=== PATIENT | female | born 1935 | race Caucasian/White ===

== ENCOUNTER → 2017-01-17 | Outpatient (CLI) | payer OTHER, MEDICARE ==
[~2017-01-17] MED LIST: AMLO10TA4 PO; CALC625T35 PO; CHOL100010 PO; CLC100X PO; LOSA50TA6 PO; MULT-506 PO; OMEG1CAP71 PO; OMEP20CA59 PO; POLY335019 PO
== END | disposition home or self-care (01) ==
LOC: C.LABPBG 14:29
PROVIDERS: ATTEND Internal Medicine Cardiovascular Disease
DX: I10 Essential (primary) hypertension (principal); E03.9 Hypothyroidism, unspecified

== ENCOUNTER → 2017-05-19 | Outpatient (CLI) | payer OTHER, MEDICARE ==
--- NOTE | 2017-05-19 16:10 | MAMMOGRAPHY REPORT ---
BILATERAL DIGITAL SCREENING MAMMOGRAM TOMOSYNTHESIS WITH CAD: 05/19/2017 CLINICAL HISTORY: Asymptomatic. Personal history of breast cancer. TECHNIQUE: Breast tomosynthesis in addition to standard 2D mammography was performed. Current study was also evaluated with a Computer Aided Detection (CAD) system. No there is mild grid artifact on t he 2-D left MLO view, however, the left MLO tomosynthesis images and C view are not degraded by artif act. COMPARISON: Comparison is made to exams dated: 05/03/2016 mammogram - [facility], 04/28/2015 mammogram, 04/17/2014 mammogram, 04/13/2013 mammogram, 03/13/2012 mammogram, and 03/08/2011 mammog [facility]. BREAST COMPOSITION: There are scattered areas of fibroglandular density in both breasts. FINDINGS: No suspicious masses, calcifications, or areas of architectural distortion are noted in ei ther breast. There has been no significant interval change compared to prior exams. Scattered bilater al benign-appearing calcifications are not significantly changed. There are stable postoperative meredith nges in the right superior breast from prior lumpectomy. Small circumscribed benign-appearing left b reast masses are stable compared to multiple prior exams. IMPRESSION: ACR BI-RADS CATEGORY 2: BENIGN There is no mammographic evidence of malignancy. A 1 year screening mammogram is recommended. The pa tient will receive written notification of the results. Approximately 10% of breast cancers are not detected with mammography. A negative mammographic report should not delay biopsy if a clinically suggestive mass is present. Chanel Marc M.D. ah/:05/19/2017 15:12:51 [employer] [facility]: Dary Perez RT(R)(M)(BD), [facility] letter sent: Normal 1/2 BI-RADS Code: ACR BI-RADS Category 2: Benign
== END | disposition home or self-care (01) ==
LOC: C.MAMM 12:12
PROVIDERS: ATTEND Nurse Practitioner Obstetrics & Gynecology
DX: Z12.31 Encounter for screening mammogram for malignant neoplasm of breast (principal)

== ENCOUNTER 2018-01-01 13:00 | Inpatient (IN) | payer OTHER, MEDICARE ==
[~2018-01-01] VITALS: Ht 167.6 cm; Wt 104.0 kg
[2018-01-01] MEDS ORDERED: PROMETHAZINE HCL INJ 25 MG in SODIUM CHLORIDE 0.9% 50ML 50 ML IV STA (13:58)
[2018-01-01] MEDS ORDERED: CHOL400T PO (14:19)
--- NOTE | 2018-01-01 14:35 | DIAGNOSTIC IMAGING REPORT ---
AP pelvis and right hip 4 views CLINICAL HISTORY: Right hip pain status post trauma COMPARISON STUDY: No previous studies for comparison. FINDINGS: There is an acute intertrochanteric right hip fracture with avulsion and distraction of the lesser trochanter. No fractures of the left hip are visualized. There is symphysis sclerosis. There is no symphysis diastases. There is no SI joint diastases. IMPRESSION: Acute intertrochanteric right hip fracture. The lesser trochanteric fragment is distracted x 1.5 cm. Electronically signed by: Pepito Spencer M.D. 01/01/2018 2:34 PM Dictated Date/Time: 01/01/2018 2:33 PM
--- NOTE | 2018-01-01 14:36 | DIAGNOSTIC IMAGING REPORT ---
R ANKLE 2 VIEWS CLINICAL HISTORY: Right ankle pain status post trauma COMPARISON: None. DISCUSSION: No acute fractures or dislocations are visualized. There is a small Achilles insertional calcification. There are arthritic changes present at the level of the tarsometatarsal joints. IMPRESSION: No acute fractures or dislocations identified. Electronically signed by: Pepito Spencer M.D. 01/01/2018 2:35 PM Dictated Date/Time: 01/01/2018 2:34 PM
--- NOTE | 2018-01-01 14:38 | EMERGENCY ROOM VISIT NOTE ---
ED Visit Note First contact with patient: 13:35 The patient was seen and examined with Zoltan Preciado PA-C. I agree with the history, physical and findings. Please see the note for disposition and details. The patient has a intertrochanteric fracture from her fall. She will need admission to the hospital. Orthopedics and internal medicine was consulted.
--- NOTE | 2018-01-01 14:39 | DIAGNOSTIC IMAGING REPORT ---
CT HEAD WITHOUT CONTRAST (CT) CLINICAL HISTORY: Head pain status post trauma COMPARISON STUDY: No previous studies for comparison. TECHNIQUE: Axial CT of the brain is performed from the vertex to the skull base. IV contrast was not administered for this examination. A dose lowering technique was utilized adhering to the principles of ALARA. CT DOSE: 537.48 mGy.cm FINDINGS: No intra or extra-axial mass lesions are visualized. There is no CT evidence of acute cortical infarction. There is no evidence of midline shift. There is no acute hemorrhage. No calvarial fractures are visualized. There are patchy white matter hypodensities likely on a small vessel basis. There is mild particular prominence of finding which is felt to be secondary to volume loss There is no evidence of acute sinusitis IMPRESSION: No acute intracranial findings Electronically signed by: Pepito Spencer M.D. 01/01/2018 2:38 PM Dictated Date/Time: 01/01/2018 2:36 PM
[2018-01-01] MEDS ORDERED: THIA100T11 PO (15:10)
[2018-01-01] MEDS ORDERED: ASPI81TA28 PO (15:16)
[2018-01-01 15:19] LABS: BASO % 0.1 %; BASO ABS # 0.02 K/uL (0-0.2); EOS % 0.1 %; EOS ABS # 0.02 K/uL (0-0.5); HEMATOCRIT 38.3 % (37-47); IG# 0.07 K/uL (0.00-0.02); LYMPH % 7.7 %; LYMPH ABS # 1.27 K/uL (1.2-3.4); MEAN CELL VOLUME 92.1 fL (80-100); MEAN CORPUSCULAR HEMOGLOBIN 31.3 pg (25-34); MEAN CORPUSCULAR HGB CONC 33.9 g/dl (32-36); MONO % 5.4 %; MONO ABS # 0.89 K/uL (0.11-0.59); NEUT % 86.3 %; NEUT ABS # 14.19 K/uL (1.4-6.5); PLATELET COUNT 248 K/uL (130-400); RED CELL DISTRIBUTION WIDTH CV 12.5 % (11.5-14.5); RED CELL DISTRIBUTION WIDTH SD 42.4 fL (36.4-46.3); WHITE BLOOD COUNT 16.46 K/uL (4.8-10.8)
[2018-01-01] MEDS ORDERED: ALUMINUM/MAGNESIUM/SIMETH (MAALOX MAX) 30 ML UDC PO PRN (15:30)
[2018-01-01 15:35] LABS: CALCIUM 8.9 mg/dl (8.5-10.1); CREATININE 0.85 mg/dl (0.60-1.20); POTASSIUM 3.7 mmol/L (3.5-5.1)
[2018-01-01] MEDS ORDERED: PANTOprazole SOD 40 MG TAB PO PRN (15:45)
[2018-01-01] MEDS ORDERED: ASPIRIN 81 MG ECTAB PO SCH (15:45)
[2018-01-01 16:00] LABS: PTT PATIENT 21.7 SECONDS (21.0-31.0)
--- NOTE | 2018-01-01 16:10 | EMERGENCY ROOM VISIT NOTE ---
History First contact with patient: 13:35 Chief Complaint: FALL Stated Complaint: FALL/HIP PAIN History of Present Illness The patient is a 82 year old white female who presents to the Emergency Room with complaints of right hip and pelvis pain after falling at home today. Patient was sitting on her rolling walker. She attempted to push herself away from the counter. The rolling walker tipped over and she fell onto the floor. She landed on her buttock. She fell backward and struck her head on the floor. She denies any loss of consciousness. Her daughter believes that the patient' s eyes did roll back in her head after striking the floor. She has been nauseated. She arrives by [facility] ambulance. She did receive fentanyl and Zofran in the ambulance. She denies any chest pain, shortness of breath, abdominal pain, back pain, upper extremity pain, or right leg pain. Her only complaints are of nausea and right pelvis and hip pain. No prior history of significant hip injury. She does have known osteoarthritis of her knees. She does see Dr. Vee for her orthopedic complaints. Review of Systems REVIEW OF SYSTEM: HEENT: No dizziness, visual problems, hearing loss, or tinnitus. There is no difficulty swallowing and no oral lesions are present. LYMPH: No adenopathy. PULMONARY: No cough, sputum production or hemoptysis. CARDIOVASCULAR: No chest pain, palpitations, or peripheral edema. GASTROINTESTINAL: No diarrhea, constipation, nausea, vomiting, or abdominal pain. GENITOURINARY: No dysuria, frequency, urgency or nocturia. NEUROLOGIC: No weakness, muscle tenderness, or epilepsy. Positive history of peripheral neuropathy. MUSCULOSKELETAL: No history of joint tenderness/swelling. Positive history of arthritis and arthralgias. SKIN: No rashes or lesions. PSYCHIATRIC: No history of depression or mental illness. ENDOCRINE: No history of diabetes, thyroid disorders, or abnormal hair growth. Past Medical/Surgical History Medical Problems: (1) Cholecystectomy (2) Diverticulitis (3) Hip fracture (4) Hysterectomy (5) MALIGN NEOPL BREAST NOS Family History Noncontributory. Parents are . Social History Smoking Status: Former Smoker Smokeless Tobacco Use: No Alcohol Use: none Drug Use: none Marital Status: Housing Status: lives with family Occupation Status: retired Current/Historical Medications Scheduled Amlodipine Besylate (Norvasc), 10 MG PO DAILYBD Aspirin (Aspirin Ec), 81 MG PO DAILY@NOON Calcium Polycarbophil (Fiber), 2 TAB PO DAILYBD Docusate Sodium (Colace), 2 CAP PO QAM Losartan Potassium (Cozaar), 50 MG PO QAM Multivitamin (Multivitamin), 1 TAB PO QAM Marmora 3 Fatty Acids-Marmora 6 Fa (Marmora 3-6-9 Complex), 1 CAP PO QPM Polyethylene Glycol 3350 (Miralax), 17 GM PO NOON Thiamine Hcl (Vitamin B-1), 400 MG PO DAILY Scheduled PRN Omeprazole (Prilosec), 20 MG PO QAM PRN for GI Upset Physical Exam Vital Signs Date Time Temp Pulse Resp B/P (MAP) Pulse Ox O2 Delivery O2 Flow Rate FiO2 01/01/18 15:32 137/47 01/01/18 15:30 73 24 98 01/01/18 14:00 64 21 97 01/01/18 13:34 145/77 01/01/18 13:30 67 14 99 01/01/18 13:15 67 01/01/18 13:13 36.7 68 18 180/69 98 Room Air 01/01/18 13:08 180/69 Physical Exam General: Well-developed, well-nourished, morbidly obese elderly white female in no acute distress. Obvious discomfort. Laying on a bed. Alert and oriented. Looks younger than her stated age. Skin: Warm and dry with good turgor. No rashes or lesions. No ecchymosis or erythema. The patient is not diaphoretic. No abrasions. HEENT: Normocephalic atraumatic. Eyes PERRLA, EOMI. No conjunctiva or scleral injection. Ears TMs intact bilaterally with good light reflexes. No erythema or bulging. No hemotympanum. Canals are patent. Nares patent bilaterally without turbinate enlargement. No significant drainage. No epistaxis. Oropharynx without erythema or exudate. Uvula midline, oral mucosa moist. No lesions present. Lymphatics are palpated without anterior or posterior chain enlargement or tenderness. Heart: Heart RRR. No MGR. No carotid bruit. Peripheral pulses are 2+. Lungs: Lungs are clear to auscultation. No crackles rhonchi or wheezing. Good air movement. The patient is able to take a deep breath. Abdomen: Abdomen was inspected, auscultated, and palpated. Bowel sounds present x 4. Soft, nontender to palpation. No hepato-splenomegaly. No masses noted. No rebound, negative Maldonado sign. No pain over McBurney's point. No CVA tenderness. Musculoskeletal: Patient has symmetric motion for her shoulders, elbows, and wrists, without pain. No discomfort with palpation over her cervical spine. She has a slight shortening of the right lower extremity. There is an external rotation position to the leg. She complains of pain with palpation over the lateral aspect of her right ankle. No pain with palpation over her foot, watson, knee, distal thigh. There is pain with palpation over her right hip and right pelvis. No pain with palpation over the left hip or left pelvis. No pain with palpation on the left leg. She has intact motor function to the left hip, knee , and ankle. No pain with logrolling of the left leg. There is pain with logrolling of the right leg. Neurologic: Cranial nerves II through XII are intact. Gross sensation is intact across the lower extremities by soft touch. Peripheral pulses are 1+. Medical Decision & Procedures ER Provider Diagnostic Interpretation: CT scan imaging of her head was obtained today. This was read by radiology as negative for intracranial bleed or acute findings. Chronic changes are noted. EKG obtained today shows Normal sinus rhythm with a rate of 72. Right bundle branch block, Left anterior fascicular block, unchanged from EKG of April 2013. This was reviewed with Dr. Wolfe. Radiographic imaging obtained of the right ankle, right hip, and pelvis was obtained. This was reviewed by me and read by radiology. Right ankle is unremarkable. No evidence for fracture dislocation. Right hip has an intertrochanteric fracture with displacement of the lesser trochanter. Pelvic films show no evidence of pelvic fracture. Intertrochanteric fracture is visible. Laboratory Results 01/01/18 15:10 Red Blood Count 4.16, Mean Corpuscular Volume 92.1, Mean Corpuscular Hemoglobin 31.3, Mean Corpuscular Hemoglobin Concent 33.9, Mean Platelet Volume 10.0, Neutrophils (%) (Auto) 86.3, Lymphocytes (%) (Auto) 7.7, Monocytes (%) (Auto) 5.4, Eosinophils (%) (Auto) 0.1, Basophils (%) (Auto) 0.1, Neutrophils # (Auto) 14.19, Lymphocytes # (Auto) 1.27, Monocytes # (Auto) 0.89, Eosinophils # (Auto) 0.02, Basophils # (Auto) 0.02 01/01/18 15:10 Test 01/01/18 15:10 White Blood Count 16.46 K/uL (4.8-10.8) Red Blood Count 4.16 M/uL (4.2-5.4) Hemoglobin 13.0 g/dL (12.0-16.0) Hematocrit 38.3 % (37-47) Mean Corpuscular Volume 92.1 fL (80-100) Mean Corpuscular Hemoglobin 31.3 pg (25-34) Mean Corpuscular Hemoglobin Concent 33.9 g/dl (32-36) Platelet Count 248 K/uL (130-400) Mean Platelet Volume 10.0 fL (7.4-10.4) Neutrophils (%) (Auto) 86.3 % Lymphocytes (%) (Auto) 7.7 % Monocytes (%) (Auto) 5.4 % Eosinophils (%) (Auto) 0.1 % Basophils (%) (Auto) 0.1 % Neutrophils # (Auto) 14.19 K/uL (1.4-6.5) Lymphocytes # (Auto) 1.27 K/uL (1.2-3.4) Monocytes # (Auto) 0.89 K/uL (0.11-0.59) Eosinophils # (Auto) 0.02 K/uL (0-0.5) Basophils # (Auto) 0.02 K/uL (0-0.2) RDW Standard Deviation 42.4 fL (36.4-46.3) RDW Coefficient of Variation 12.5 % (11.5-14.5) Immature Granulocyte % (Auto) 0.4 % Immature Granulocyte # (Auto) 0.07 K/uL (0.00-0.02) Prothrombin Time 10.3 SECONDS (9.0-12.0) Prothromb Time International Ratio 1.0 (0.9-1.1) Activated Partial Thromboplast Time 21.7 SECONDS (21.0-31.0) Partial Thromboplastin Ratio 0.8 Anion Gap 9.0 mmol/L (3-11) Est Creatinine Clear Calc Drug Dose 63.4 ml/min Estimated GFR () 73.4 Estimated GFR (Non- 63.4 BUN/Creatinine Ratio 27.2 (10-20) Calcium Level 8.9 mg/dl (8.5-10.1) CBC and PRP were obtained today. Medications Administered Medications (Trade) Dose Ordered Sig/Home Route Start Time Stop Time Status Last Admin Dose Admin Promethazine HCl 25 mg/Sodium Chloride 51 ml @ 204 mls/hr NOW STAT IV 01/01/18 13:58 01/01/18 14:12 DC 01/01/18 14:47 204 MLS/HR Phenergan 25 mg IV ED Course Patient was evaluated in room C1. She was removed from the backboard. IV was reestablished in the ambulance. She did receive Zofran 4 mg IV and fentanyl 50 mcg IV in route. She continued to be nauseated. She was given Phenergan 25 mg IV. Lab work, CT scan imaging of the head, and radiographic imaging of the right ankle, right hip, and pelvis was obtained. She was found to have an intertrochanteric fracture of the right hip. EKG was also obtained and was unremarkable. She last ate around 830 this morning. She will require admission for surgical fixation. I did contact the hospitalist service for admission. Please see that dictation. I did contact Dr. Armendariz to make him aware of her orthopedic needs. He will contact Dr. Vee. She remained stable while in the ED. Patient was seen in conjunction with Dr. Wolfe, who also evaluated the patient and concurred with today's diagnosis and treatment plan. Medical Decision Possibility of intracranial bleed, cervical spine injury, long bone fracture, cardiac event, LOC, pelvic fracture, and ankle fracture were considered among others. Medication Reconcilliation Current Medication List: was personally reviewed by me Blood Pressure Screening Blood pressure disposition: Elevated BP felt to be situational Impression Primary Impression: Intertrochanteric fracture of right hip Additional Impression: Fall at home Departure Information Referrals Van Lynn M.D. (PCP) Patient Instructions My [facility] Problem Qualifiers Primary Impression: Intertrochanteric fracture of right hip Encounter type: initial encounter Fracture type: closed Fracture alignment : displaced Qualified Codes: S72.141A - Displaced intertrochanteric fracture of right femur, initial encounter for closed fracture Additional Impression: Fall at home Encounter type: initial encounter Qualified Codes: W19.XXXA - Unspecified fall, initial encounter; Y92.009 - Unspecified place in unspecified non- institutional (private) residence as the place of occurrence of the external cause
[2018-01-01] MEDS ORDERED: HYDROmorphone INJ 0.5 MG/0.5 ML SYR IV PRN (16:15)
--- NOTE | 2018-01-01 16:17 | History and Physical ---
History & Physical Date & Time of Service: Jan 01, 2018 at 15:55 Chief Complaint: Fall/Hip Pain Primary Care Physician: Van Lynn M.D. History of Present Illness Source: patient 82-year-old female with history of hypertension. Presented to the emergency department after a ground-level fall. She was in her rolling walker and went to stand up. When she did the walker kicked backwards and she fell straight to the ground landing on her right buttock. She immediately felt pain in the right hip area and was brought to the emergency department. She denies any recent fever, chills, nausea, vomiting or change in bowel or bladder function. She has had no recent cough. Patient was evaluated in emergency department and had imaging of her ankle and hip. Ankle x-ray showed no acute fractures or dislocations hip x-ray showed an acute intertrochanteric right hip fracture. The lesser trochanteric fragment is distracted by 1.5 cm. She was given fentanyl en route to the emergency department and had Toradol and Zofran while in the ED. Call was placed to the orthopedic surgeon and hospital medicine was asked to admit the patient. Past Medical/Surgical History Medical Problems: 1. Hypertension 2. Hx Breast CA 3. GERD Past surgical history 1. Cholecystectomy 2. Tonsillectomy 3. Hysterectomy Family History Patient reports no known family medical history. Social History Smoking Status: Former Smoker Smokeless Tobacco Use: No Alcohol Use: none Drug Use: none Marital Status: Housing status: lives alone Occupational Status: retired Immunizations History of Influenza Vaccine: N/A History of Tetanus Vaccine?: UTD History of Pneumococcal: Yes Pneumococcal Date: May 24, 2008 History of Hepatitis B Vaccine: Yes Allergies Coded Allergies: Hydrochlorothiazide (Verified Allergy, Unknown, ? heart palpatations, ) UNSURE IF REACTION CORRECT Morphine (Verified Allergy, Unknown, "STOPPED BREATHING", 01/01/18) Lidocaine (Verified Adverse Reaction, Intermediate, RASH, 01/01/18) Home Medications Scheduled Amlodipine Besylate (Norvasc), 10 MG PO DAILYBD Aspirin (Aspirin Ec), 81 MG PO DAILY@NOON Calcium Polycarbophil (Fiber), 2 TAB PO DAILYBD Docusate Sodium (Colace), 2 CAP PO QAM Losartan Potassium (Cozaar), 50 MG PO QAM Multivitamin (Multivitamin), 1 TAB PO QAM Laurel 3 Fatty Acids-Laurel 6 Fa (Laurel 3-6-9 Complex), 1 CAP PO QPM Polyethylene Glycol 3350 (Miralax), 17 GM PO NOON Thiamine Hcl (Vitamin B-1), 400 MG PO DAILY Scheduled PRN Omeprazole (Prilosec), 20 MG PO QAM PRN for GI Upset Review of Systems Constitutional: No fever, No chills, No sweats, No weight loss, No weakness, No fatigue, No problem reported Eyes: No worsening of vision, No eye pain, No redness, No discharge, No diplopia, No problem reported ENT: No hearing loss, No unusual epistaxis, No nasal symptoms, No sore throat, No tinnitus, No dental problems, No trouble swallowing, No problem reported Respiratory: No cough, No sputum, No wheezing, No shortness of breath, No dyspnea on exertion, No dyspnea at rest, No hemoptysis, No problem reported Cardiovascular: No chest pain, No orthopnea, No PND, No edema, No claudication , No palpitations, No problem reported Abdomen: No pain, No nausea, No vomiting, No diarrhea, No constipation, No GI bleeding, No problem reported Musculoskeletal: + problem reported (right hip pain) Genitourinary - Female: No dysuria, No urinary frequency, No urinary urgency, No urinary incontinence, No urinary retention, No hematuria, No dysmenorrhea, No menorrhagia, No metrorrhagia, No rash, No vaginal bleeding, No vaginal discharge, No vaginal itching, No vulvodynia, No , No problem reported Neurologic: No memory loss, No paralysis, No weakness, No numbness/tingling, No vertigo, No balance problems, No problem reported Psychiatric: No depression symptoms, No anhedonism, No anxiety, No insomnia, No substance abuse, No problem reported Endocrine: No fatigue, No excessive thirst, No excessive urination, No problem reported Hematologic / Lymphatic: No abnormal bleeding/bruising, No clotting problems, No swollen lymph nodes, No night sweats, No problem reported Integumentary: No rash, No itch, No new/changing skin lesions, No color change , No bleeding, No problem reported Physical Exam Vital Signs Date Time Temp Pulse Resp B/P (MAP) Pulse Ox O2 Delivery O2 Flow Rate FiO2 4/8/18 15:32 137/47 01/01/18 15:30 73 24 98 01/01/18 14:00 64 21 97 01/01/18 13:34 145/77 01/01/18 13:30 67 14 99 01/01/18 13:15 67 01/01/18 13:13 36.7 68 18 180/69 98 Room Air 01/01/18 13:08 180/69 General Appearance: WD/WN, + pertinent finding Eyes: normal inspection, sclerae normal ENT: hearing grossly normal, pharynx normal Neck: supple, no JVD Respiratory/Chest: chest non-tender, lungs clear, normal breath sounds Cardiovascular: regular rate, rhythm, no JVD, no murmur Abdomen/GI: normal bowel sounds, non tender, soft Genitourinary - Female: + pertinent finding (ashley) Back: normal inspection Extremities/Musculoskelatal: + pertinent finding (right leg shortened and externally rotated) Neurologic/Psych: no motor/sensory deficits (cms to right foot good), alert, oriented x 3 Skin: normal color, warm/dry, no rash Diagnostics Laboratory Results Results Past 24 Hours Test 01/01/18 15:10 Range/Units White Blood Count 16.46 4.8-10.8 K/uL Red Blood Count 4.16 4.2-5.4 M/uL Hemoglobin 13.0 12.0-16.0 g/dL Hematocrit 38.3 37-47 % Mean Corpuscular Volume 92.1 80-100 fL Mean Corpuscular Hemoglobin 31.3 25-34 pg Mean Corpuscular Hemoglobin Concent 33.9 32-36 g/dl Platelet Count 248 130-400 K/uL Mean Platelet Volume 10.0 7.4-10.4 fL Neutrophils (%) (Auto) 86.3 % Lymphocytes (%) (Auto) 7.7 % Monocytes (%) (Auto) 5.4 % Eosinophils (%) (Auto) 0.1 % Basophils (%) (Auto) 0.1 % Neutrophils # (Auto) 14.19 1.4-6.5 K/uL Lymphocytes # (Auto) 1.27 1.2-3.4 K/uL Monocytes # (Auto) 0.89 0.11-0.59 K/uL Eosinophils # (Auto) 0.02 0-0.5 K/uL Basophils # (Auto) 0.02 0-0.2 K/uL RDW Standard Deviation 42.4 36.4-46.3 fL RDW Coefficient of Variation 12.5 11.5-14.5 % Immature Granulocyte % (Auto) 0.4 % Immature Granulocyte # (Auto) 0.07 0.00-0.02 K/uL Sodium Level 137 136-145 mmol/L Potassium Level 3.7 3.5-5.1 mmol/L Chloride Level 103 98-107 mmol/L Carbon Dioxide Level 25 21-32 mmol/L Anion Gap 9.0 3-11 mmol/L Blood Urea Nitrogen 23 7-18 mg/dl Creatinine 0.85 0.60-1.20 mg/dl Est Creatinine Clear Calc Drug Dose 63.4 ml/min Estimated GFR () 73.4 Estimated GFR (Non- 63.4 BUN/Creatinine Ratio 27.2 10-20 Random Glucose 148 70-99 mg/dl Calcium Level 8.9 8.5-10.1 mg/dl Diagnostic Radiology CT HEAD WITHOUT CONTRAST (CT) CLINICAL HISTORY: Head pain status post trauma COMPARISON STUDY: No previous studies for comparison. TECHNIQUE: Axial CT of the brain is performed from the vertex to the skull base. IV contrast was not administered for this examination. A dose lowering technique was utilized adhering to the principles of ALARA. CT DOSE: 537.48 mGy.cm FINDINGS: No intra or extra-axial mass lesions are visualized. There is no CT evidence of acute cortical infarction. There is no evidence of midline shift. There is no acute hemorrhage. No calvarial fractures are visualized. There are patchy white matter hypodensities likely on a small vessel basis. There is mild particular prominence of finding which is felt to be secondary to volume loss There is no evidence of acute sinusitis IMPRESSION: No acute intracranial findings AP pelvis and right hip 4 views CLINICAL HISTORY: Right hip pain status post trauma COMPARISON STUDY: No previous studies for comparison. FINDINGS: There is an acute intertrochanteric right hip fracture with avulsion and distraction of the lesser trochanter. No fractures of the left hip are visualized. There is symphysis sclerosis. There is no symphysis diastases. There is no SI joint diastases. IMPRESSION: Acute intertrochanteric right hip fracture. The lesser trochanteric fragment is distracted x 1.5 cm. Normal EKG Impression Assessment and Plan 82 year old female with history of hypertension. Fell while getting out of her walker and instantly developed right hip pain. 1. Acute right peritrochanteric hip fracture. Will consult orthopedics. Bedrest. Focus on pain control. Patient did ask for Dr. Vee as surgeon however he is not habilitation specialist. On-call surgeon is to discuss and see if Dr. Vee is available tomorrow. 2. Ambulatory dysfunction secondary to hip fracture. Postoperatively she will need physical therapy and occupational therapy. 3. Hypertension-will continue her on her home 4. Pain secondary to acute right hip fracture. Will start her with Toradol. She currently states she cannot take morphine. She did have fentanyl en route and tolerated it well. We will try Dilaudid for breakthrough pain. 5. DVT prophylaxis will be per orthopedic guidelines postoperatively. 6. Full code 7. stay will be 2 midnights Resuscitation Status VTE Prophylaxis Will order VTE Prophylaxis: Yes Reviewed: Pt Seen/Exam by Me History Pt is very cold and thirsty. She feels her pain is getting worse. She again mentions that she wants to speak with Dr. Vee about who will do her surgery. Has been tolerating PO without issue. Denies chest pain, SOB. Does have mild nausea now but no emesis. Agree with HPI/ROS as noted by PA. General Appearance: no apparent distress, obese Eye Exam: bilateral eye normal inspection, bilateral eye other (nml sclera) Respiratory: normal breath sounds, no respiratory distress Cardiovascular: normal peripheral pulses, regular rate, rhythm Gastrointestinal: non tender, soft Extremities: no pedal edema Neurologic/Psychiatric: alert, oriented x 3 Skin Characteristics: normal color, warm/dry Assessment/Plan Agree with plan as outlined above R intertroch fracture s/p mechanical fall Ortho c/s pending Wants to see Dr. Vee only as she follows with him as outpt
[2018-01-01] MEDS: KETOROLAC TROMETHAMINE 15 MG/ML VIAL IV. PRN (16:19)
[2018-01-01 16:50] VITALS: Ht 167.6 cm; Wt 104.0 kg
[2018-01-01] MEDS: ONDANSETRON INJ 2 MG/ML 2 ML VIAL IV PRN (18:04)
[2018-01-01] MEDS: AMLODIPINE BESYLATE 5 MG TAB PO SCH ×2 (18:04→18:06)
[2018-01-01] MEDS: SODIUM CHLORIDE 0.9% 1000ML 1,000 ML IV SCH (19:40)
[2018-01-01 23:08] VITALS: BP 132/68; PULSE 69; TEMP 37.4; O2SAT 94
[2018-01-02] VITALS (8 sets, daily range): BP systolic 106–154; BP diastolic 57–70; PULSE 63–80; TEMP 36.7–37.1; O2SAT 91–99
[2018-01-02] MEDS: SODIUM CHLORIDE 0.9% 1000ML 1,000 ML IV SCH ×2 (02:10→08:49)
[2018-01-02] MEDS: KETOROLAC TROMETHAMINE 15 MG/ML VIAL IV. PRN ×2 (04:07→12:29)
[2018-01-02] MEDS: ONDANSETRON INJ 2 MG/ML 2 ML VIAL IV PRN ×2 (04:07→20:22)
[2018-01-02] MEDS ORDERED: CLINDAMYCIN IV 900 MG in DEXTROSE 5% 100ML 100 ML IV SCH (06:00)
[2018-01-02 06:12] LABS: HEMATOCRIT 32.9 % (37-47); HEMOGLOBIN 11.1 g/dL (12.0-16.0); MEAN CELL VOLUME 92.9 fL (80-100); MEAN CORPUSCULAR HEMOGLOBIN 31.4 pg (25-34); MEAN CORPUSCULAR HGB CONC 33.7 g/dl (32-36); MEAN PLATELET VOLUME 9.9 fL (7.4-10.4); PLATELET COUNT 220 K/uL (130-400); RED CELL DISTRIBUTION WIDTH CV 12.7 % (11.5-14.5); RED CELL DISTRIBUTION WIDTH SD 43.4 fL (36.4-46.3)
[2018-01-02] MEDS ORDERED: BUPIVACAINE 0.5 % 5 MG/1 ML PF 10ML VIAL ONE (06:32)
[2018-01-02 06:52] LABS: CALCIUM 8.5 mg/dl (8.5-10.1); CREATININE 0.89 mg/dl (0.60-1.20); POTASSIUM 4.2 mmol/L (3.5-5.1)
--- NOTE | 2018-01-02 08:01 | ORTHOPEDIC CONSULTATION ---
DATE OF CONSULTATION: 01/02/2018 CHIEF COMPLAINT: Right hip pain. HISTORY OF PRESENT ILLNESS: The patient is an 82-year-old female well known to me from treating her for a pretty severe knee arthritis. She walks with the use of a rollator device due to her knee arthritis. She has got a long history of knee arthritis. No history of hip pain in the past. She sustained a fall yesterday. While getting off of her rollator, it kind of slid forward and she fell backwards and right on to her back and right buttock. She had acute onset of pain. She was brought to the Emergency Room. X-ray showed a right hip fracture. She was admitted by the medicine service. No other injuries. She did have a head CT which was negative. Patient is relatively healthy otherwise with some hypertension and history of cancer. PAST MEDICAL HISTORY: Significant for: 1. Hypertension. 2. History of breast cancer. 3. Gastroesophageal reflux disease. 4. Cervical cancer. PREVIOUS SURGERIES: Include: 1. Cholecystectomy. 2. Tonsillectomy. 3. Hysterectomy. The remainder of her past medical history is per the admission H and P. PHYSICAL EXAMINATION: VITAL SIGNS: Temperature is 37.4. Vital signs stable. GENERAL: Reveals a healthy pleasant elderly female. She is lying in bed, looks reasonably comfortable. MUSCULOSKELETAL: Her general musculoskeletal exam reveals no pain with palpation of her cervical, thoracic or lumbar spine. She has relatively painless range of motion of both shoulders, wrists, elbows, and hands and left lower extremity. EXTREMITIES: Examination of the right lower extremity reveals it to be slightly shortened and externally rotated. Fairly large soft tissue envelope. There are no areas of bruising or swelling and pretty minimal knee effusion. She has pain with any type of hip motion. X-RAYS: X-ray of the right hip reviewed. Shows a 3-part intertrochanteric hip fracture. Some mild underlying hip arthritis. ASSESSMENT: An 82-year-old female, relatively healthy with pretty severe knee arthritis with a right intertrochanteric hip fracture. She has been admitted to medicine service. She looks medically optimized. PLAN: We discussed treatment options. Certainly this is something that is best treated with surgical treatment and we will plan on placing an IM troch nail. Hopefully, I will do this later on this afternoon. Risks and benefits of the procedure were explained to the patient including, but not limited to, DVT, PE, , infection, neurological injury, vascular injury, bleeding problem, pain, nonunion, malunion, need for blood transfusion, etc. The patient understands and desires to proceed. Informed consent was obtained. In the meantime, we will keep her in Herrera's traction. DVT prophylaxis including thigh-high TEDs and SCDs and likely aspirin postop. She will likely need a rehab stay postop.
[2018-01-02] MEDS: LOSARTAN POTASSIUM 50 MG TAB PO SCH (08:48)
[2018-01-02] MEDS: THIAMINE HCL 100 MG TAB PO SCH (08:49)
[2018-01-02] MEDS: MULTIVITAMIN TAB PO SCH (08:49)
[2018-01-02] MEDS: DOCUSATE SODIUM 100 MG CAP PO SCH (08:49)
[2018-01-02] MEDS ORDERED: BISACODYL 10 MG SUPP PR PRN ×3 (09:00→15:15)
[2018-01-02] MEDS ORDERED: MAGNESIUM HYDROXIDE SUSP 30 ML UDC PO PRN ×3 (09:00→15:15)
[2018-01-02] MEDS ORDERED: NALOXONE HCL 0.4 MG/1 ML VIAL/CARP IV PRN ×2 (09:00)
[2018-01-02] MEDS ORDERED: SOD PHOSPHATE/SOD BIPHOSPHATE ENEMA 132 ML BTL PR PRN ×2 (09:00)
[2018-01-02] MEDS ORDERED: POLYETHYLENE (MIRALAX) 17 GM PACK PO PRN ×2 (09:00)
--- NOTE | 2018-01-02 09:41 | Hospitalist Progress Note ---
Hospitalist Progress Note Date of Service Jan 02, 2018. (Kari Ascencio PA-C) Subjective Pt evaluation today including: conversation w/ patient, physical exam, chart review, lab review, review of studies, review of inpatient medication list Pain: R hip - minimal and under control with meds PO Intake: NPO Voiding: ashley catheter in place Patient seen and evaluated. No acute events overnight. Reporting good pain control at this time. Currently in [place] Traction. Planning for OR this afternoon Reporting chronic peripheral neuropathy into feet that is unchanged Verbalizes no complaints or needs at this time. Constitutional: No fever, No chills Respiratory: No cough, No shortness of breath Cardiovascular: No chest pain Abdomen: No pain, No nausea, No vomiting, No diarrhea, No constipation Musculoskeletal: + joint pain (R hip - minimal), No calf pain Female : No dysuria Neurologic: + numbness/tingling (chronic - b/l feet ) Heme: No abnormal bleeding/bruising (Kari Ascencio, DOREEN-C) Medications Current Inpatient Medications Medications (Trade) Dose Ordered Sig/Home Route Start Time Stop Time Status Last Admin Dose Admin Ketorolac Tromethamine (Toradol Inj) 15 mg Q6H PRN IV. 01/01/18 15:30 01/06/18 15:29 01/02/18 04:07 15 MG Acetaminophen (Tylenol Tab) 650 mg Q4H PRN PO 01/01/18 15:30 01/31/18 15:29 Al Hydrox/Mg Hydrox/Simethicone (Maalox Max Susp) 15 ml Q4H PRN PO 01/01/18 15:30 01/31/18 15:29 Ondansetron HCl (Zofran Inj) 4 mg Q6H PRN IV 01/01/18 15:30 01/31/18 15:29 01/02/18 04:07 4 MG Amlodipine Besylate (Norvasc Tab) 10 mg DAILYBD PO 01/01/18 16:00 01/31/18 15:59 01/01/18 18:04 10 MG Aspirin (Ecotrin Tab) 81 mg QD PO 01/01/18 15:45 01/31/18 15:44 Docusate Sodium (coLACE CAP) 200 mg QAM PO 01/02/18 09:00 02/01/18 08:59 Losartan Potassium (coZAAR TAB) 50 mg QAM PO 01/02/18 09:00 02/01/18 08:59 01/02/18 08:48 50 MG Multivitamins (Multivitamin Tab) 1 tab QAM PO 01/02/18 09:00 02/01/18 08:59 01/02/18 08:49 1 TAB Thiamine HCl (Vitamin B-1 Tab) 400 mg DAILY PO 01/02/18 09:00 02/01/18 08:59 Pantoprazole Sodium (Protonix Tab) 40 mg QAM PRN PO 01/01/18 15:45 01/31/18 15:44 Hydromorphone HCl (Dilaudid Inj) 0.5 mg Q4H PRN IV 01/01/18 16:15 01/15/18 16:14 01/01/18 21:57 0.5 MG Sodium Chloride 1,000 ml @ 140 mls/hr Q7H9M IV 01/01/18 19:15 01/31/18 19:14 01/02/18 08:49 140 MLS/HR Naloxone HCl (Narcan Inj) 0.1 mg PRN PRN IV 01/02/18 09:00 02/01/18 08:59 Senna/Docusate Sodium (Senokot S Tab) 2 tab HS PO 01/02/18 21:00 02/01/18 20:59 Polyethylene (Miralax Powder Packet) 17 gm DAILY PRN PO 01/02/18 09:00 02/01/18 08:59 Magnesium Hydroxide (Milk Of Magnesia Susp) 30 ml DAILY PRN PO 01/02/18 09:00 02/01/18 08:59 Bisacodyl (Dulcolax Supp) [address] 01/02/18 09:00 02/01/18 08:59 Sodium Biphosphate/ Sodium Phosphate (Fleet Enema) [address] 01/02/18 09:00 Clindamycin Phosphate 900 mg/ Dextrose 106 ml @ 106 mls/hr PREOP IV 01/02/18 06:00 01/02/18 18:00 (Kari Ascencio PA-C) Objective Vital Signs Date Time Temp Pulse Resp B/P (MAP) Pulse Ox O2 Delivery O2 Flow Rate FiO2 01/02/18 08:01 37.1 74 16 154/70 (98) 94 Room Air 01/02/18 07:50 Room Air 01/02/18 00:15 Room Air 01/01/18 23:08 37.4 69 18 132/68 (89) 94 Room Air 01/01/18 16:50 Room Air 01/01/18 16:44 36.7 79 18 156/57 94 01/01/18 16:37 79 18 94 01/01/18 16:31 156/57 01/01/18 16:07 74 25 96 01/01/18 16:01 150/48 01/01/18 15:37 79 14 97 01/01/18 15:32 137/47 01/01/18 15:30 73 24 98 01/01/18 14:00 64 21 97 01/01/18 13:34 145/77 01/01/18 13:30 67 14 99 01/01/18 13:15 67 01/01/18 13:13 36.7 68 18 180/69 98 Room Air 01/01/18 13:08 180/69 (Kari Ascencio, PA-C) Physical Exam General Appearance: WD/WN, no apparent distress Eyes: sclerae normal ENT: hearing grossly normal Neck: supple, no JVD, trachea midline Respiratory/Chest: lungs clear, normal breath sounds, no respiratory distress, no accessory muscle use Cardiovascular: regular rate, rhythm, no gallop, no murmur Abdomen: normal bowel sounds, non tender, soft Extremities: + pertinent finding (bucks traction to RLE; movement of toes with immediate cap refill) Neurologic/Psychiatric: alert Skin: normal color, warm/dry (Kari Ascencio, PA-C) Laboratory Results Last 24 Hours Test 01/01/18 15:10 01/02/18 05:54 White Blood Count 16.46 K/uL 12.20 K/uL Red Blood Count 4.16 M/uL 3.54 M/uL Hemoglobin 13.0 g/dL 11.1 g/dL Hematocrit 38.3 % 32.9 % Mean Corpuscular Volume 92.1 fL 92.9 fL Mean Corpuscular Hemoglobin 31.3 pg 31.4 pg Mean Corpuscular Hemoglobin Concent 33.9 g/dl 33.7 g/dl Platelet Count 248 K/uL 220 K/uL Mean Platelet Volume 10.0 fL 9.9 fL Neutrophils (%) (Auto) 86.3 % Lymphocytes (%) (Auto) 7.7 % Monocytes (%) (Auto) 5.4 % Eosinophils (%) (Auto) 0.1 % Basophils (%) (Auto) 0.1 % Neutrophils # (Auto) 14.19 K/uL Lymphocytes # (Auto) 1.27 K/uL Monocytes # (Auto) 0.89 K/uL Eosinophils # (Auto) 0.02 K/uL Basophils # (Auto) 0.02 K/uL RDW Standard Deviation 42.4 fL 43.4 fL RDW Coefficient of Variation 12.5 % 12.7 % Immature Granulocyte % (Auto) 0.4 % Immature Granulocyte # (Auto) 0.07 K/uL Prothrombin Time 10.3 SECONDS Prothromb Time International Ratio 1.0 Activated Partial Thromboplast Time 21.7 SECONDS Partial Thromboplastin Ratio 0.8 Urine Color YELLOW Urine Appearance CLEAR Urine pH 6.5 Urine Specific [place] 1.013 Urine Protein NEG Urine Glucose (UA) NEG Urine Ketones NEG Urine Occult Blood NEG Urine Nitrite NEG Urine Bilirubin NEG Urine Urobilinogen NEG Urine Leukocyte Esterase NEG Sodium Level 137 mmol/L 138 mmol/L Potassium Level 3.7 mmol/L 4.2 mmol/L Chloride Level 103 mmol/L 107 mmol/L Carbon Dioxide Level 25 mmol/L 25 mmol/L Anion Gap 9.0 mmol/L 6.0 mmol/L Blood Urea Nitrogen 23 mg/dl 25 mg/dl Creatinine 0.85 mg/dl 0.89 mg/dl Est Creatinine Clear Calc Drug Dose 63.4 ml/min 58.3 ml/min Estimated GFR () 73.4 69.5 Estimated GFR (Non- 63.4 59.9 BUN/Creatinine Ratio 27.2 28.3 Random Glucose 148 mg/dl 111 mg/dl Calcium Level 8.9 mg/dl 8.5 mg/dl (Kari Ascencio PA-C) Assessment and Plan 82 year old female with history of hypertension. Fell while getting out of her walker and instantly developed right hip pain. Acute R Intertrochanteric Hip Fx with Distracted Lesser Trochanter 2/2 Mechanical Fall: - Patient currently in [place] traction reporting good control of pain at this time; plan for nailing this afternoon - Geriatric hip protocol; pre-operative Abx with Clindamycin; bowel regimen - Pain management with Dilaudid and Toradol - NO MORPHINE - Orthopedics following - Dr. Vee planning on nailing this afternoon HTN: STABLE - NOrvasc 10 mg daily and Losartan 50 mg daily - Held ASA daily (did refuse this AM) can resume post-operatively pending choice of DVT prophylaxis Pre-Operative Clearance: - Patient with no history of known Coronary disease or SD; Follows with Dr. 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; no acute ischemic findings; no CXR upon admission but lung sounds clear and no recent illness - Electrolytes and kidney function stable - Patient is very active and ambulates with walker support - Patient is optimal for surgical intervention from a medical standpoint DVT Prophylaxis: Appreciate orthopedics recommendation post-operatively Code Status: FULL RESUSCITATION Disposition: - PT/OT evaluations post-operatively Continued [facility] stay due to: ambulation difficulties Discharge planning: rehab hospital (Kari Ascencio PA-C) Reviewed: Pt Seen/Exam by Me (Leeann Lennon MD) History Physician Mds Nurse Supervision Note: I interviewed and examined the patient. Discussed with DOREEN Ascencio and agree with findings and plan as documented in the note. Any exceptions or clarifications are listed here: I saw the patient a couple of hours postoperatively from her right hip repair. She was feeling tired, but was otherwise doing very well. Denies chest pain or shortness of breath. Denies abdominal pain, she did eat some of her dinner. Her pain is controlled. Vitals reviewed Gen: AAOx3, NAD HEENT: anicteric sclerae, EOMI CV: RRR no mgr nl S1S2 Pulm: CTAB no wcr Abd: +BS soft NT ND no masses or hernias Ext: no edema, 2+ DP pulses bilaterally, right hip with dressing in place not removed but is clean dry and intact Skin: no rashes, warm/dry This patient is an 82-year-old female with history of HTN, GERD, breast cancer, here with mechanical fall resulting in right hip fracture. Doing well postoperatively -PT/OT evaluations -DVT prophylaxis with aspirin 81 mg p.o. twice daily -Pain control -Continue losartan and amlodipine for HTN Documented By: Leeann Lennon (Leeann Lennon MD)
[2018-01-02] MEDS ORDERED: PROPOFOL IV EMULSION 10 MG/ML 20 ML VIAL IV ONE (12:16)
[2018-01-02] MEDS ORDERED: GLYCOPYRROLATE INJ 0.2 MG/ML VIAL ONE (12:16)
[2018-01-02] MEDS ORDERED: ONDANSETRON INJ 2 MG/ML 2 ML VIAL ONE (12:16)
[2018-01-02] MEDS ORDERED: FENTANYL CITRATE INJ 50 MCG/1 ML 2 ML VIAL ONE (12:16)
[2018-01-02] MEDS ORDERED: DEXAMETHASONE SOD INJ 4 MG/ML VIAL ONE (12:16)
[2018-01-02] MEDS ORDERED: NEOSTIGMINE METHYLSULFATE 5 MG/5 ML SYR ONE (12:16)
[2018-01-02] MEDS ORDERED: LIDOCAINE HCL 2% 2 ML VIAL (20MG/ML) ONE (12:16)
[2018-01-02] MEDS ORDERED: EpHEDrine SULFATE INJ 50 MG/ML AMP IV PRN (13:00)
[2018-01-02] MEDS ORDERED: ONDANSETRON INJ 2 MG/ML 2 ML VIAL IV PRN ×2 (13:00→15:15)
[2018-01-02] MEDS ORDERED: ATROPINE SULFATE 0.1 MG/ML 5ML SYR IV PRN (13:00)
[2018-01-02] MEDS ORDERED: BUPIVACAINE/EPINEPHRINE 0.5% MPF 1:200,000 30 ML VIAL ONE (13:04)
--- NOTE | 2018-01-02 14:58 | DIAGNOSTIC IMAGING REPORT ---
FLUOROSCOPIC IMAGES OF THE RIGHT HIP CLINICAL HISTORY: Right trochanteric nail. COMPARISON STUDY: Pelvis and right hip radiographs January 01, 2018. FLUOROSCOPY TIME: 1 minute and 45 seconds. FINDINGS: 4 fluoroscopic images demonstrate internal fixation of the intertrochanteric fracture of the right femur with trochanteric nail. There is a distal screw. The hardware is intact. Lesser trochanter remains distracted. There are no unexpected radiopaque foreign bodies. IMPRESSION: Expected findings following internal fixation of the intertrochanteric fracture of the right femur with trochanteric nail. Electronically signed by: Lonnie Munoz M.D. 01/02/2018 2:57 PM Dictated Date/Time: 01/02/2018 2:56 PM
--- NOTE | 2018-01-02 15:04 | [facility] Post Operative Brief Note ---
Immediate Operative Summary Operative Date Jan 02, 2018. Pre-Operative Diagnosis Right Intertrochanteric Hip Fracture Post-Operative Diagnosis Right Intertrochanteric Hip Fracture Procedure(s) Performed Insertion of Intertrochanteric Nail Right Hip Surgeon Dr. Vee Cartography Technician Surgeon(s) DOREEN Aleman Estimated Blood Loss 50 ml Findings Consistent with Post-Op Diagnosis Fluids (cc crystalloids) 1000 cc Specimens none per surgeon Drains None Anesthesia Type General Complication(s) none Disposition Accompanied Pt To Recover: no Disposition: Recovery Room / PACU
[2018-01-02] MEDS: FENTANYL CITRATE INJ 50 MCG/1 ML 2 ML VIAL IV PRN ×3 (15:18→15:28)
[2018-01-02] MEDS ORDERED: MEPERIDINE HCL 25 MG/ML CARP ONE (15:33)
[2018-01-02] MEDS: HYDROmorphone INJ 0.5 MG/0.5 ML SYR IV PRN ×4 (15:37→15:53)
--- NOTE | 2018-01-02 16:57 | OPERATIVE REPORT ---
DATE OF OPERATION: 01/01/2018 SURGEON: Corwin Vee MD DIRECTOR OF SPA AND GUEST EXPERIENCE: DOREEN Dueñas PREOPERATIVE DIAGNOSIS: Right 3-part intertrochanteric hip fracture. POSTOPERATIVE DIAGNOSIS: Right 3-part intertrochanteric hip fracture. PROCEDURE PERFORMED: Right long cephalomedullary nailing of right intertrochanteric hip fracture. COMPLICATIONS: None. ESTIMATED BLOOD LOSS: 50 mL FLUID REPLACEMENT: 1000 mL crystalloid fluid replacement. ANESTHESIA: General. SPECIMENS: None. 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 She used a rolling walker to get around due to her knee arthritis. She sustained a fall yesterday when the walker kind of went out of control and she fell flat backwards and onto her right hip. She had acute onset of pain. X-rays were done which showed intertrochanteric hip fracture. Patient admitted to the hospital and medically optimized and indicated for surgical treatment. OPERATIVE IMPLANTS: Operative implants consisted of: 1. A Synthes right 360 x 11 mm long trochanteric nail. 2. A 95 mm helical blade. 3. A 5 x 46 mm distal interlocking screw. OPERATIVE PROCEDURE: Patient taken to the operating room, identified and placed on the operative table in supine position. All contact areas were appropriately padded. IV antibiotics were provided by anesthesia team. A general anesthetic was implemented by the anesthesia team using a laryngeal mask anesthetic. IV antibiotics were provided. Patient was then placed on the fracture table. The right leg was placed in boot traction, left leg was placed in a well leg belle. I applied some longitudinal traction to the right leg and internally rotated foot so the kneecap pointed to the ceiling. X-ray was brought in. The fracture was anatomically aligned. The right hip was then prepped and draped in usual sterile fashion. A curvilinear incision was made just proximal tip of the trochanter and extended proximally. Sharp dissection was carried through subcutaneous tissue down to the level of the gluteal fascia. She had a very thick soft tissue envelope with probably about 6 inches of tissue before the gluteal fascia. It was difficult to even feel the gluteal fascia. Therefore, I did not make any intentional incision and placed a sharp guidewire just on the lateral tip of the trochanter and in line with the IM canal in both the AP and lateral planes. This was advanced down the femur. This was verified fluoroscopically and overreamed with a 17 mm reamer. The guidewire was then removed and a ball-tipped guidewire was then placed in the IM canal. I then measured for nail length and a 360 mm nail was selected. Then we overreamed the guidewire with a 12 mm reamer followed by a 12.5 mm reamer. I then placed a 360 mm x 11 mm right long trochanteric nail over the guidewire. This was tapped into position. The lateral aiming arm was attached. A stab incision was made and the lateral aiming arm was advanced to the lateral aspect of the femur. A guidewire was placed in the central aspect of the femoral head and neck on both AP and lateral planes. A 95 mm helical blade was selected. The cortical drill was used to breach the cortex, the triple reamer was set at 95 and the guidewire was overdrilled with this triple reamer. I then placed a 95 mm helical blade over the guidewire. This was tapped into position. The guidewire was then removed. I then tightened the set screw proximally. I then compressed the fracture site as it did distract the fracture slightly on impacting the helical blade. We got good bony contact. The lateral aiming arm was then removed. Some final x-rays were obtained and attention was then drawn toward distal interlock. A distal interlocking was performed using the perfect minto technique. I got a perfect lateral x-ray of the dynamic hole distally. A stab incision was made. The drill was then used and a 46 x 5.0 mm distal interlocking screw was placed. This was verified fluoroscopically. Some final pictures were obtained. Attention was then drawn toward closing. All wounds were irrigated and I injected 30 mL of 0.5% Marcaine with epinephrine. I was able to get 1 suture in the gluteal fascia of #1 Vicryl suture. It was a very deep hole. The subcutaneous tissue was then closed with 2 layers with the deep layer 0 Vicryl suture and subcutaneous tissue 2-0 Dexon suture in buried interrupted fashion. The distal incisions were then closed with 2-0 Vicryl suture in a subcuticular fashion and all incisions were then closed with skin azam. Leg was then cleaned and dried and a sterile dressing of Xeroform, 4 x 4's, ABD pad and foam tape was applied. The patient was then taken off the fracture table and put on the transport bed. She was then brought out of general anesthesia and transferred to the recovery room in stable condition. The patient tolerated the procedure well with no complications. All needle and sponge counts were correct at the end of the operation. I attest to the content of the Intraoperative Record and any orders documented therein. Any exceptions are noted below. FIDELD
[2018-01-02] MEDS: AMLODIPINE BESYLATE 5 MG TAB PO SCH (17:51)
--- NOTE | 2018-01-02 18:25 | Anesthesiology Progress Note ---
Anesthesia Post Op Note Date & Time Jan 02, 2018 at 18:23 Vital Signs Pain Intensity: 3.0 Vital Signs Past 12 Hours Date Time Temp Pulse Resp B/P (MAP) Pulse Ox O2 Delivery O2 Flow Rate FiO2 01/02/18 18:16 Nasal Cannula 2.0 01/02/18 18:08 Nasal Cannula 2.0 01/02/18 17:50 37.0 76 16 135/69 (91) 93 Nasal Cannula 2.0 01/02/18 17:14 36.9 76 16 106/57 (73) 97 Nasal Cannula 2.0 01/02/18 16:50 36.8 80 16 134/65 (88) 99 Nasal Cannula 2.0 01/02/18 16:40 75 20 145/62 97 Nasal Cannula 2 01/02/18 16:25 74 18 140/62 96 Nasal Cannula 2 01/02/18 16:10 72 12 151/48 99 Nasal Cannula 2 01/02/18 16:00 37.0 75 16 158/62 99 Nasal Cannula 2 01/02/18 15:50 72 16 152/60 96 Nasal Cannula 2 01/02/18 15:40 75 14 153/59 97 Nasal Cannula 2 01/02/18 15:30 75 14 151/77 97 Oxymask 10 01/02/18 15:20 72 16 151/77 100 Oxymask 10 01/02/18 15:10 36.7 70 16 152/100 100 Oxymask 10 01/02/18 09:28 94 Room Air 01/02/18 08:01 37.1 74 16 154/70 (98) 94 Room Air 01/02/18 07:50 Room Air Notes Mental Status: alert / awake / arousable, participated in evaluation Pt Amnestic to Procedure: Yes Nausea / Vomiting: adequately controlled Pain: adequately controlled Airway Patency, RR, SpO2: stable & adequate BP & HR: stable & adequate Hydration State: stable & adequate Anesthetic Complications: no major complications apparent The patient is an 82 y/o s/p Insertion of Intertrochanteric Nail Right Hip with Dr. Vee. The patient was placed under GA due to her prior history of allergy to lidocaine. The patient did well with no issues.
[2018-01-02] MEDS ORDERED: DOCUSATE SODIUM/SENNA 50/8.6MG TAB PO SCH ×2 (21:00)
[2018-01-02] MEDS: DOCUSATE SODIUM/SENNA 50/8.6MG TAB PO SCH (21:08)
[2018-01-02] MEDS: ASPIRIN 81 MG ECTAB PO SCH (21:08)
[2018-01-02] MEDS: CLINDAMYCIN IV 600 MG in DEXTROSE 5% 50ML 50 ML IV SCH (22:30)
[2018-01-03] MEDS: SODIUM CHLORIDE 0.9% 1000ML 1,000 ML IV SCH ×2 (02:25→15:23)
[2018-01-03 03:29] VITALS: BP 130/68; PULSE 66; TEMP 36.8; O2SAT 92
[2018-01-03] MEDS: KETOROLAC TROMETHAMINE 15 MG/ML VIAL IV. PRN ×3 (03:34→16:03)
[2018-01-03] MEDS: CLINDAMYCIN IV 600 MG in DEXTROSE 5% 50ML 50 ML IV SCH (05:51)
[2018-01-03 06:30] LABS: HEMATOCRIT 28.7 % (37-47); HEMOGLOBIN 9.8 g/dL (12.0-16.0); MEAN CELL VOLUME 93.5 fL (80-100); MEAN CORPUSCULAR HEMOGLOBIN 31.9 pg (25-34); MEAN CORPUSCULAR HGB CONC 34.1 g/dl (32-36); MEAN PLATELET VOLUME 9.1 fL (7.4-10.4); PLATELET COUNT 197 K/uL (130-400); WHITE BLOOD COUNT 15.17 K/uL (4.8-10.8)
[2018-01-03 07:07] LABS: CALCIUM 8.4 mg/dl (8.5-10.1); CREATININE 1.14 mg/dl (0.60-1.20); POTASSIUM 4.4 mmol/L (3.5-5.1)
[2018-01-03 08:04] VITALS: BP 148/67; PULSE 70; TEMP 37; O2SAT 90
--- NOTE | 2018-01-03 08:12 | Anesthesiology Progress Note ---
Anesthesia Post Op Note Date & Time Jan 03, 2018 at 08:11 Vital Signs Vital Signs Past 12 Hours Date Time Temp Pulse Resp B/P (MAP) Pulse Ox O2 Delivery O2 Flow Rate FiO2 01/03/18 03:29 36.8 66 15 130/68 (88) 92 Room Air 01/03/18 00:30 Room Air 01/02/18 23:44 36.7 63 15 111/69 (83) 91 Room Air Notes Mental Status: alert / awake / arousable, participated in evaluation Pt Amnestic to Procedure: Yes Nausea / Vomiting: adequately controlled Pain: adequately controlled Airway Patency, RR, SpO2: stable & adequate BP & HR: stable & adequate Hydration State: stable & adequate Anesthetic Complications: no major complications apparent
[2018-01-03] MEDS: THIAMINE HCL 100 MG TAB PO SCH (08:42)
[2018-01-03] MEDS: LOSARTAN POTASSIUM 50 MG TAB PO SCH (08:43)
[2018-01-03] MEDS: DOCUSATE SODIUM 100 MG CAP PO SCH (08:43)
[2018-01-03] MEDS: MULTIVITAMIN TAB PO SCH (08:44)
[2018-01-03] MEDS: ASPIRIN 81 MG ECTAB PO SCH ×2 (08:44→20:46)
[2018-01-03] MEDS: ACETAMINOPHEN 325 MG TAB PO PRN (08:49)
--- NOTE | 2018-01-03 09:02 | Clinical Documentation Query ---
CLINICAL DOCUMENTATION QUERY 82 yo female s/p cephalomedullary nailing of right intertrochanteric hip fracture has hgb 13.0 trending down to 9.8. In your clinical opinion is this patient being managed for: (x ) Expected acute blood-loss anemia ( ) Not Agree ( ) Other explanation of clinical findings (Please Explain) ( ) Unable to determine (Please Define) ( ) Need to Discuss The medical record reflects the following clinical findings, treatment, and risk factors. Clinical Indicators: As above Treatment: IV hydration, type/screen, serial CBCs Risk Factors: Age, s/p surgical intervention Please clarify and document your clinical opinion in the progress notes and discharge summary. Terms such as "probable", "suspected", "likely", "questionable", "possible", or "still to be ruled out" are acceptable. IF IN AGREEMENT, YOU MUST DOCUMENT ABOVE DIAGNOSTIC STATEMENT IN DAILY PROGRESS NOTES AND DISCHARGE SUMMARY. This document is not part of the patient's record. Thank You, Elyssa Burch RN [phone]
[2018-01-03] MEDS: ONDANSETRON INJ 2 MG/ML 2 ML VIAL IV PRN ×2 (09:49→16:03)
--- NOTE | 2018-01-03 09:49 | PROGRESS NOTE ---
DATE: 01/03/2018 SUBJECTIVE: An 82-year-old female postop day 1 from IM nailing of a right intertrochanteric fracture. She is doing pretty well. She is talking on the phone when I visited her this morning initially. Pain seems to be controlled. No chest pain or shortness of breath. Not feeling dizzy or lightheaded. OBJECTIVE: VITAL SIGNS: Temperature 37.0. Vital signs stable. GENERAL: She is a pleasant elderly female. She is sitting up in bed, looks pretty comfortable. EXTREMITIES: Examination of the right hip and leg reveals the dressing to be clean, dry and intact. The leg is appropriately aligned. Leg lengths were equal. She can dorsiflex and plantarflex her foot appropriately. She is neurologically intact. LABORATORY DATA: Hemoglobin 9.8, hematocrit 28.7, white cell count 15.17. Electrolytes are stable. ASSESSMENT: An 82-year-old female postop day 1 from IM nailing of a right intertrochanteric fracture. She is doing well from the orthopedic standpoint. Pain is controlled. She is anemic without symptoms. White cell count is up, likely related to stress, but there are no focal signs of infection. She does have severe knee arthritis, which is going to hinder her recovery. PLAN: 1. DVT prophylaxis include thigh-high TEDs, SCDs, and we would recommend aspirin 81 mg twice a day. 2. PT/OT. She can fully weightbear on the right leg. 3. Medical management as per the medicine service. 4. Disposition. She would benefit from a rehab stay. I think [facility] service is working on that. I need to see her back in 2 weeks from surgery. Whenever medically stable, she is acceptable for discharge. Any orthopedic questions can be directed at [phone].
--- NOTE | 2018-01-03 11:27 | Hospitalist Progress Note ---
Hospitalist Progress Note Date of Service Jan 03, 2018. Subjective Pt evaluation today including: conversation w/ patient, physical exam, chart review, lab review, review of inpatient medication list Medications Current Inpatient Medications Medications (Trade) Dose Ordered Sig/Home Route Start Time Stop Time Status Last Admin Dose Admin Ketorolac Tromethamine (Toradol Inj) 15 mg Q6H PRN IV. 01/01/18 15:30 01/06/18 15:29 01/03/18 09:44 15 MG Acetaminophen (Tylenol Tab) 650 mg Q4H PRN PO 01/01/18 15:30 01/31/18 15:29 01/03/18 08:49 650 MG Al Hydrox/Mg Hydrox/Simethicone (Maalox Max Susp) 15 ml Q4H PRN PO 01/01/18 15:30 01/31/18 15:29 Ondansetron HCl (Zofran Inj) 4 mg Q6H PRN IV 01/01/18 15:30 01/31/18 15:29 01/03/18 09:49 4 MG Amlodipine Besylate (Norvasc Tab) 10 mg DAILYBD PO 01/01/18 16:00 01/31/18 15:59 01/02/18 17:51 10 MG Docusate Sodium (coLACE CAP) 200 mg QAM PO 01/02/18 09:00 02/01/18 08:59 01/03/18 08:43 200 MG Losartan Potassium (coZAAR TAB) 50 mg QAM PO 01/02/18 09:00 02/01/18 08:59 01/03/18 08:43 50 MG Multivitamins (Multivitamin Tab) 1 tab QAM PO 01/02/18 09:00 02/01/18 08:59 01/03/18 08:44 1 TAB Thiamine HCl (Vitamin B-1 Tab) 400 mg DAILY PO 01/02/18 09:00 02/01/18 08:59 01/03/18 08:42 400 MG Pantoprazole Sodium (Protonix Tab) 40 mg QAM PRN PO 01/01/18 15:45 01/31/18 15:44 Hydromorphone HCl (Dilaudid Inj) 0.5 mg Q4H PRN IV 01/01/18 16:15 01/15/18 16:14 01/01/18 21:57 0.5 MG Sodium Chloride 1,000 ml @ 80 mls/hr [id number] IV 01/01/18 19:15 01/31/18 19:14 01/03/18 02:25 80 MLS/HR Naloxone HCl (Narcan Inj) 0.1 mg PRN PRN IV 01/02/18 09:00 02/01/18 08:59 Senna/Docusate Sodium (Senokot S Tab) 2 tab HS PO 01/02/18 21:00 02/01/18 20:59 01/02/18 21:08 2 TAB Polyethylene (Miralax Powder Packet) 17 gm DAILY PRN PO 01/02/18 09:00 02/01/18 08:59 Magnesium Hydroxide (Milk Of Magnesia Susp) 30 ml DAILY PRN PO 01/02/18 09:00 02/01/18 08:59 Bisacodyl (Dulcolax Supp) 10 mg DAILY PRN AR 01/02/18 09:00 02/01/18 08:59 Sodium Biphosphate/ Sodium Phosphate (Fleet Enema) 132 ml PRN PRN AR 01/02/18 09:00 Polyethylene (Miralax Powder Packet) 17 gm Q6 PO 01/04/18 06:00 02/03/18 05:59 Aspirin (Ecotrin Tab) 81 mg BID PO 01/02/18 21:00 02/01/18 20:59 01/03/18 08:44 81 MG Objective Vital Signs Date Time Temp Pulse Resp B/P (MAP) Pulse Ox O2 Delivery O2 Flow Rate FiO2 01/03/18 08:04 37.0 70 18 148/67 (94) 90 Room Air 01/03/18 03:29 36.8 66 15 130/68 (88) 92 Room Air 01/03/18 00:30 Room Air 01/02/18 23:44 36.7 63 15 111/69 (83) 91 Room Air 01/02/18 19:56 36.8 74 18 147/65 (92) 98 Nasal Cannula 2.0 01/02/18 18:52 36.9 72 18 146/67 (93) 96 Nasal Cannula 2.0 01/02/18 18:16 Nasal Cannula 2.0 01/02/18 18:08 Nasal Cannula 2.0 01/02/18 17:50 37.0 76 16 135/69 (91) 93 Nasal Cannula 2.0 01/02/18 17:14 36.9 76 16 106/57 (73) 97 Nasal Cannula 2.0 01/02/18 16:50 36.8 80 16 134/65 (88) 99 Nasal Cannula 2.0 01/02/18 16:40 75 20 145/62 97 Nasal Cannula 2 01/02/18 16:25 74 18 140/62 96 Nasal Cannula 2 01/02/18 16:10 72 12 151/48 99 Nasal Cannula 2 01/02/18 16:00 37.0 75 16 158/62 99 Nasal Cannula 2 01/02/18 15:50 72 16 152/60 96 Nasal Cannula 2 01/02/18 15:40 75 14 153/59 97 Nasal Cannula 2 01/02/18 15:30 75 14 151/77 97 Oxymask 10 01/02/18 15:20 72 16 151/77 100 Oxymask 10 01/02/18 15:10 36.7 70 16 152/100 100 Oxymask 10 Laboratory Results Last 24 Hours Test 01/03/18 06:19 White Blood Count 15.17 K/uL Red Blood Count 3.07 M/uL Hemoglobin 9.8 g/dL Hematocrit 28.7 % Mean Corpuscular Volume 93.5 fL Mean Corpuscular Hemoglobin 31.9 pg Mean Corpuscular Hemoglobin Concent 34.1 g/dl RDW Standard Deviation 44.0 fL RDW Coefficient of Variation 13.0 % Platelet Count 197 K/uL Mean Platelet Volume 9.1 fL Sodium Level 138 mmol/L Potassium Level 4.4 mmol/L Chloride Level 107 mmol/L Carbon Dioxide Level 23 mmol/L Anion Gap 8.0 mmol/L Blood Urea Nitrogen 22 mg/dl Creatinine 1.14 mg/dl Est Creatinine Clear Calc Drug Dose 45.5 ml/min Estimated GFR () 51.5 Estimated GFR (Non- 44.4 BUN/Creatinine Ratio 19.5 Random Glucose 121 mg/dl Calcium Level 8.4 mg/dl Magnesium Level 2.2 mg/dl Assessment and Plan 82 year old female with history of hypertension. Fell while getting out of her walker and instantly developed right hip pain. Acute R Intertrochanteric Hip Fx with Distracted Lesser Trochanter 2/2 Mechanical Fall: S/P R Nailing on 01/02 - Pain management with Dilaudid and Toradol - NO MORPHINE - ASA 81 mg BID - Orthopedics following - Dr. Vee planning on F/U in 2 weeks HTN: STABLE - Norvasc 10 mg daily and Losartan 50 mg daily DVT Prophylaxis: ASA BID Code Status: FULL RESUSCITATION Disposition: - PT/OT evaluations - likely will need rehab Continued [facility] stay due to: ambulation difficulties Discharge planning: rehab hospital
--- NOTE | 2018-01-03 15:18 | Hospitalist Progress Note ---
Hospitalist Progress Note Date of Service Jan 03, 2018. (Kari Ascencio PA-C) Subjective Pt evaluation today including: conversation w/ patient, physical exam, lab review, review of inpatient medication list Pain: Minimal - controlled with medication PO Intake: Adequate Voiding: no voiding problems Patient seen and evaluated. No acute events overnight. Reporting pain is under control. Didn't get much sleep overnight so has been trying to rest at home. Wanting to go to [facility] for rehab. Verbalizes no needs at this time. Constitutional: No fever, No chills Respiratory: No cough, No shortness of breath Cardiovascular: No chest pain Abdomen: No pain, No nausea, No vomiting, No diarrhea, No constipation Musculoskeletal: No calf pain Female : No dysuria Heme: No abnormal bleeding/bruising (Kari Ascencio PA-C) Medications Current Inpatient Medications Medications (Trade) Dose Ordered Sig/Home Route Start Time Stop Time Status Last Admin Dose Admin Ketorolac Tromethamine (Toradol Inj) 15 mg Q6H PRN IV. 01/01/18 15:30 01/06/18 15:29 01/03/18 09:44 15 MG Acetaminophen (Tylenol Tab) 650 mg Q4H PRN PO 01/01/18 15:30 01/31/18 15:29 01/03/18 08:49 650 MG Al Hydrox/Mg Hydrox/Simethicone (Maalox Max Susp) 15 ml Q4H PRN PO 01/01/18 15:30 01/31/18 15:29 Ondansetron HCl (Zofran Inj) 4 mg Q6H PRN IV 01/01/18 15:30 01/31/18 15:29 01/03/18 09:49 4 MG Amlodipine Besylate (Norvasc Tab) 10 mg DAILYBD PO 01/01/18 16:00 01/31/18 15:59 01/02/18 17:51 10 MG Docusate Sodium (coLACE CAP) 200 mg QAM PO 01/02/18 09:00 02/01/18 08:59 01/03/18 08:43 200 MG Losartan Potassium (coZAAR TAB) 50 mg QAM PO 01/02/18 09:00 02/01/18 08:59 01/03/18 08:43 50 MG Multivitamins (Multivitamin Tab) 1 tab QAM PO 01/02/18 09:00 02/01/18 08:59 01/03/18 08:44 1 TAB Thiamine HCl (Vitamin B-1 Tab) 400 mg DAILY PO 01/02/18 09:00 02/01/18 08:59 01/03/18 08:42 400 MG Pantoprazole Sodium (Protonix Tab) 40 mg QAM PRN PO 01/01/18 15:45 01/31/18 15:44 Hydromorphone HCl (Dilaudid Inj) 0.5 mg Q4H PRN IV 01/01/18 16:15 01/15/18 16:14 01/01/18 21:57 0.5 MG Naloxone HCl (Narcan Inj) 0.1 mg PRN PRN IV 01/02/18 09:00 02/01/18 08:59 Senna/Docusate Sodium (Senokot S Tab) 2 tab HS PO 01/02/18 21:00 02/01/18 20:59 01/02/18 21:08 2 TAB Polyethylene (Miralax Powder Packet) 17 gm DAILY PRN PO 01/02/18 09:00 02/01/18 08:59 Magnesium Hydroxide (Milk Of Magnesia Susp) 30 ml DAILY PRN PO 01/02/18 09:00 02/01/18 08:59 Bisacodyl (Dulcolax Supp) 10 mg DAILY PRN MT 01/02/18 09:00 02/01/18 08:59 Sodium Biphosphate/ Sodium Phosphate (Fleet Enema) 132 ml PRN PRN MT 01/02/18 09:00 Polyethylene (Miralax Powder Packet) 17 gm Q6 PO 01/04/18 06:00 02/03/18 05:59 Aspirin (Ecotrin Tab) 81 mg BID PO 01/02/18 21:00 02/01/18 20:59 01/03/18 08:44 81 MG Sodium Chloride 1,000 ml @ 75 mls/hr [id number] IV 01/03/18 14:15 02/02/18 14:14 UNV (Kari Ascencio PA-C) Objective Vital Signs Date Time Temp Pulse Resp B/P (MAP) Pulse Ox O2 Delivery O2 Flow Rate FiO2 01/03/18 08:10 Room Air 01/03/18 08:04 37.0 70 18 148/67 (94) 90 Room Air 01/03/18 03:29 36.8 66 15 130/68 (88) 92 Room Air 01/03/18 00:30 Room Air 01/02/18 23:44 36.7 63 15 111/69 (83) 91 Room Air 01/02/18 19:56 36.8 74 18 147/65 (92) 98 Nasal Cannula 2.0 01/02/18 18:52 36.9 72 18 146/67 (93) 96 Nasal Cannula 2.0 01/02/18 18:16 Nasal Cannula 2.0 01/02/18 18:08 Nasal Cannula 2.0 01/02/18 17:50 37.0 76 16 135/69 (91) 93 Nasal Cannula 2.0 01/02/18 17:14 36.9 76 16 106/57 (73) 97 Nasal Cannula 2.0 01/02/18 16:50 36.8 80 16 134/65 (88) 99 Nasal Cannula 2.0 01/02/18 16:40 75 20 145/62 97 Nasal Cannula 2 01/02/18 16:25 74 18 140/62 96 Nasal Cannula 2 01/02/18 16:10 72 12 151/48 99 Nasal Cannula 2 01/02/18 16:00 37.0 75 16 158/62 99 Nasal Cannula 2 01/02/18 15:50 72 16 152/60 96 Nasal Cannula 2 01/02/18 15:40 75 14 153/59 97 Nasal Cannula 2 01/02/18 15:30 75 14 151/77 97 Oxymask 10 01/02/18 15:20 72 16 151/77 100 Oxymask 10 (Kari Ascencio PA-C) Physical Exam General Appearance: WD/WN, no apparent distress Eyes: sclerae normal ENT: hearing grossly normal Neck: supple, no JVD, trachea midline Respiratory/Chest: lungs clear, normal breath sounds, no respiratory distress, no accessory muscle use Cardiovascular: regular rate, rhythm, no gallop, no murmur Abdomen: normal bowel sounds, non tender, soft Extremities: no pedal edema, + pertinent finding (dressing applied that are C/D /I) Neurologic/Psychiatric: alert Skin: normal color (Kari Ascencio PA-C) Laboratory Results Last 24 Hours Test 01/03/18 06:19 White Blood Count 15.17 K/uL Red Blood Count 3.07 M/uL Hemoglobin 9.8 g/dL Hematocrit 28.7 % Mean Corpuscular Volume 93.5 fL Mean Corpuscular Hemoglobin 31.9 pg Mean Corpuscular Hemoglobin Concent 34.1 g/dl RDW Standard Deviation 44.0 fL RDW Coefficient of Variation 13.0 % Platelet Count 197 K/uL Mean Platelet Volume 9.1 fL Sodium Level 138 mmol/L Potassium Level 4.4 mmol/L Chloride Level 107 mmol/L Carbon Dioxide Level 23 mmol/L Anion Gap 8.0 mmol/L Blood Urea Nitrogen 22 mg/dl Creatinine 1.14 mg/dl Est Creatinine Clear Calc Drug Dose 45.5 ml/min Estimated GFR () 51.5 Estimated GFR (Non- 44.4 BUN/Creatinine Ratio 19.5 Random Glucose 121 mg/dl Calcium Level 8.4 mg/dl Magnesium Level 2.2 mg/dl (Kari Ascencio PA-C) Assessment and Plan 82 year old female with history of hypertension. Fell while getting out of her walker and instantly developed right hip pain. Acute R Intertrochanteric Hip Fx with Distracted Lesser Trochanter 2/ Mechanical Fall: S/P R Nailing on 01/02 - Pain management with Dilaudid and Toradol - NO MORPHINE -- Will need to see what she has been on for pain in the past to reduce adverse reaction - ASA 81 mg BID - Orthopedics following - Dr. Vee planning on F/U in 2 weeks HTN: STABLE - Norvasc 10 mg daily and Losartan 50 mg daily DVT Prophylaxis: ASA BID Code Status: FULL RESUSCITATION Disposition: - PT/OT evaluations - likely will need rehab - If clinical course remains the same she would be stable for D/C to rehab Continued [facility] stay due to: ambulation difficulties Discharge planning: rehab hospital (Kari Ascencio PA-C) Reviewed: Pt Seen/Exam by Me (Leeann Lennon MD) History Physician Roof Truss Detailer Supervision Note: I interviewed and examined the patient. Discussed with DOREEN Ascencio and agree with findings and plan as documented in the note. Any exceptions or clarifications are listed here: Doing well, pain controlled. Eating and drinking a little bit, but nurse reports she is mostly sleeping all day and has had only 150 mL's of urine all day long. Vitals reviewed Gen: AAOx3, NAD HEENT: anicteric sclerae, EOMI CV: RRR no mgr nl S1S2 Pulm: CTAB no wcr Abd: +BS soft NT ND no masses or hernias Ext: no edema, 2+ DP pulses bilaterally, right hip with dressing in place not removed but is clean dry and intact Skin: no rashes, warm/dry This patient is an 82-year-old female with history of HTN, GERD, breast cancer, here with mechanical fall resulting in right hip fracture. Doing well postoperatively. Acute blood loss anemia-hemoglobin dropped down to 9.8 from 13 on admission- likely secondary to hip fracture and some hemodilution. Hemodynamically stable -Restart normal saline at 75 ML's per hour for low urine output and Encouraged p.o. intake -PT/OT evaluations -DVT prophylaxis with aspirin 81 mg p.o. twice daily -Pain control -Continue losartan and amlodipine for HTN -Expect discharge to rehab tomorrow Documented By: Leeann Lennon (Leeann Lennon MD)
[2018-01-03 15:28] VITALS: BP 138/64; PULSE 70; TEMP 36.9; O2SAT 92
[2018-01-03] MEDS: AMLODIPINE BESYLATE 5 MG TAB PO SCH (17:39)
[2018-01-03] MEDS: DOCUSATE SODIUM/SENNA 50/8.6MG TAB PO SCH (20:46)
--- NOTE | 2018-01-03 21:21 | Discharge Instructions ---
Discharge Instructions Date of Service Jan 03, 2018. Admission Reason for Admission: Hip Fracture Discharge Discharge Diagnosis / Problem: IM Nail of Right Hip Fracture Discharge Goals Goal(s): Decrease discomfort, Improve function, Increase independence, Improve disease control, Therapeutic intervention Activity Recommendations Activity Level: Assistance Required Therapies: Physical Therapy, Weight Bearing Status (WBAT), Occupational Therapy Weightbearing Status: Right weightbearing . Additional Information Patient informed of condition: Yes Advance Directives: Yes DNR: No Level of Care: Acute Rehab Communicable Disease: No Prognosis: Improving Instructions / Follow-Up Instructions / Follow-Up May WBAT on Right Leg. Return to Ortho Clinic 2 weeks from surgery date. Current Hospital Diet Patient's current hospital diet: Regular Diet, Low Fiber Diet Discharge Diet Recommended Diet: Regular Diet, Low Fiber Diet Procedures Procedures Performed: Insertion of Intertrochanteric Nail Right Hip Pending Studies Studies pending at discharge: no Medical Emergencies . Who to Call and When: Medical Emergencies: If at any time you feel your situation is an emergency, please call 911 immediately. . Non-Emergent Contact Non-Emergency issues call your: Surgeon . . "Provider Documentation" section prepared by Corwin Vee. . Core Measure Problem Core Measures: None
[2018-01-03 23:02] VITALS: BP 147/70; PULSE 72; TEMP 37.2; O2SAT 92
[2018-01-04] MEDS: SODIUM CHLORIDE 0.9% 1000ML 1,000 ML IV SCH (01:40)
[2018-01-04] MEDS: KETOROLAC TROMETHAMINE 15 MG/ML VIAL IV. PRN ×3 (02:15→19:28)
[2018-01-04] MEDS: POLYETHYLENE (MIRALAX) 17 GM PACK PO SCH ×4 (05:14→23:59)
[2018-01-04] MEDS: ACETAMINOPHEN 325 MG TAB PO PRN (05:17)
[2018-01-04] MEDS: ONDANSETRON INJ 2 MG/ML 2 ML VIAL IV PRN (07:15)
[2018-01-04 07:30] VITALS: BP 149/64; PULSE 76; TEMP 37.2; O2SAT 96
[2018-01-04 07:49] LABS: HEMOGLOBIN 8.1 g/dL (12.0-16.0); MEAN CORPUSCULAR HEMOGLOBIN 31.4 pg (25-34); MEAN CORPUSCULAR HGB CONC 33.8 g/dl (32-36); MEAN PLATELET VOLUME 9.7 fL (7.4-10.4); PLATELET COUNT 153 K/uL (130-400); RED CELL DISTRIBUTION WIDTH CV 13.1 % (11.5-14.5); RED CELL DISTRIBUTION WIDTH SD 44.9 fL (36.4-46.3); WHITE BLOOD COUNT 11.31 K/uL (4.8-10.8)
[2018-01-04] MEDS: DOCUSATE SODIUM 100 MG CAP PO SCH (08:31)
[2018-01-04] MEDS: LOSARTAN POTASSIUM 50 MG TAB PO SCH (08:31)
[2018-01-04] MEDS: MULTIVITAMIN TAB PO SCH (08:31)
[2018-01-04] MEDS: THIAMINE HCL 100 MG TAB PO SCH (08:31)
[2018-01-04] MEDS: ASPIRIN 81 MG ECTAB PO SCH ×2 (08:32→21:00)
[2018-01-04] MEDS ORDERED: HYDROmorphone HCL 2 MG TAB PO PRN (10:30)
[2018-01-04] MEDS ORDERED: GI COCKTAIL PO ONE (11:30)
[2018-01-04] MEDS ORDERED: ALUMINUM/MAGNESIUM SUSP 18 ML, LIDOCAINE HCL 2% VISCOUS SOLN 6 ML, BARCODE IDENTIFIER 1 EA PO STA ×2 (11:51)
[2018-01-04 12:31] VITALS: BP 140/80; PULSE 70; TEMP 37; O2SAT 90
[2018-01-04 12:41] LABS: HEMATOCRIT 24.6 % (37-47); HEMOGLOBIN 8.2 g/dL (12.0-16.0)
[2018-01-04 15:06] VITALS: BP 137/67; PULSE 67; TEMP 37.5; O2SAT 92
--- NOTE | 2018-01-04 18:27 | Hospitalist Progress Note ---
Hospitalist Progress Note Date of Service Jan 04, 2018. (Kari Ascencio PA-C) Subjective Pt evaluation today including: conversation w/ patient, conversation w/ family , physical exam, chart review, lab review, review of inpatient medication list Pain: Minimal - Controlled PO Intake: Fair today - due to nausea Voiding: no voiding problems Patient seen and evaluated twice today due to feeling nauseous this AM. She feels this was related to her IBS and daughter reports she gets a lot of nausea at home related to this. Patient reports not eating breakfast but did better at lunch. Nausea was improving but didn't feel completely well. Moving bowels without issue and no vomiting with this. Discussed discharge plan and would like to pursue [facility] tomorrow. Will recheck hemoglobin as it is low but remaining stable. Constitutional: + fatigue, No fever, No chills Respiratory: No cough, No shortness of breath Cardiovascular: No chest pain Abdomen: + nausea, No pain, No vomiting, No diarrhea, No constipation Female : No dysuria Neurologic: + numbness/tingling (baseline b/l legs) Heme: No abnormal bleeding/bruising Skin: No rash (Kari Ascencio, EVELYNEC) Medications Current Inpatient Medications Medications (Trade) Dose Ordered Sig/Home Route Start Time Stop Time Status Last Admin Dose Admin Ketorolac Tromethamine (Toradol Inj) 15 mg Q6H PRN IV. 01/01/18 15:30 01/06/18 15:29 01/04/18 08:40 15 MG Acetaminophen (Tylenol Tab) 650 mg Q4H PRN PO 01/01/18 15:30 01/31/18 15:29 01/04/18 05:17 650 MG Al Hydrox/Mg Hydrox/Simethicone (Maalox Max Susp) 15 ml Q4H PRN PO 01/01/18 15:30 01/31/18 15:29 Ondansetron HCl (Zofran Inj) 4 mg Q6H PRN IV 01/01/18 15:30 01/31/18 15:29 01/04/18 07:15 4 MG Amlodipine Besylate (Norvasc Tab) 10 mg DAILYBD PO 01/01/18 16:00 01/31/18 15:59 01/03/18 17:39 10 MG Docusate Sodium (coLACE CAP) 200 mg QAM PO 01/02/18 09:00 02/01/18 08:59 01/04/18 08:31 200 MG Losartan Potassium (coZAAR TAB) 50 mg QAM PO 01/02/18 09:00 02/01/18 08:59 01/04/18 08:31 50 MG Multivitamins (Multivitamin Tab) 1 tab QAM PO 01/02/18 09:00 02/01/18 08:59 01/04/18 08:31 1 TAB Thiamine HCl (Vitamin B-1 Tab) 400 mg DAILY PO 01/02/18 09:00 02/01/18 08:59 01/04/18 08:31 400 MG Pantoprazole Sodium (Protonix Tab) 40 mg QAM PRN PO 01/01/18 15:45 01/31/18 15:44 Hydromorphone HCl (Dilaudid Inj) 0.5 mg Q4H PRN IV 01/01/18 16:15 01/15/18 16:14 01/01/18 21:57 0.5 MG Naloxone HCl (Narcan Inj) 0.1 mg PRN PRN IV 01/02/18 09:00 02/01/18 08:59 Senna/Docusate Sodium (Senokot S Tab) 2 tab HS PO 01/02/18 21:00 02/01/18 20:59 01/03/18 20:46 2 TAB Polyethylene (Miralax Powder Packet) 17 gm DAILY PRN PO 01/02/18 09:00 02/01/18 08:59 Magnesium Hydroxide (Milk Of Magnesia Susp) 30 ml DAILY PRN PO 01/02/18 09:00 02/01/18 08:59 Bisacodyl (Dulcolax Supp) 10 mg DAILY PRN MO 01/02/18 09:00 02/01/18 08:59 Sodium Biphosphate/ Sodium Phosphate (Fleet Enema) 132 ml PRN PRN MO 01/02/18 09:00 Polyethylene (Miralax Powder Packet) 17 gm Q6 PO 01/04/18 06:00 02/03/18 05:59 01/04/18 05:14 17 GM Aspirin (Ecotrin Tab) 81 mg BID PO 01/02/18 21:00 02/01/18 20:59 01/04/18 08:32 81 MG Hydromorphone HCl (Dilaudid Tab) 2 mg Q4H PRN PO 01/04/18 10:30 01/18/18 10:29 (Kari Ascencio PA-C) Objective Vital Signs Date Time Temp Pulse Resp B/P (MAP) Pulse Ox O2 Delivery O2 Flow Rate FiO2 01/04/18 15:45 Room Air 01/04/18 15:06 37.5 67 16 137/67 (90) 92 Room Air 01/04/18 12:31 37.0 70 17 140/80 (100) 90 Room Air 01/04/18 07:50 Room Air 01/04/18 07:30 37.2 76 16 149/64 (92) 96 Room Air 01/04/18 00:00 Room Air 01/03/18 23:02 37.2 72 16 147/70 (95) 92 Room Air (Kari Ascencio PA-C) Physical Exam General Appearance: WD/WN, no apparent distress Eyes: sclerae normal ENT: hearing grossly normal Neck: supple, no JVD, trachea midline Respiratory/Chest: lungs clear, normal breath sounds, no respiratory distress, no accessory muscle use Cardiovascular: regular rate, rhythm, no gallop, no murmur Abdomen: normal bowel sounds, non tender, soft Extremities: no pedal edema Neurologic/Psychiatric: alert, oriented x 3 Skin: normal color, warm/dry (Kari Ascencio PA-C) Laboratory Results Last 24 Hours Test 01/04/18 07:23 01/04/18 12:26 White Blood Count 11.31 K/uL Red Blood Count 2.58 M/uL Hemoglobin 8.1 g/dL 8.2 g/dL Hematocrit 24.0 % 24.6 % Mean Corpuscular Volume 93.0 fL Mean Corpuscular Hemoglobin 31.4 pg Mean Corpuscular Hemoglobin Concent 33.8 g/dl RDW Standard Deviation 44.9 fL RDW Coefficient of Variation 13.1 % Platelet Count 153 K/uL Mean Platelet Volume 9.7 fL Sodium Level 139 mmol/L Potassium Level 4.0 mmol/L Chloride Level 108 mmol/L Carbon Dioxide Level 23 mmol/L Anion Gap 7.0 mmol/L Blood Urea Nitrogen 25 mg/dl Creatinine 1.00 mg/dl Est Creatinine Clear Calc Drug Dose 51.9 ml/min Estimated GFR () 60.3 Estimated GFR (Non- 52.1 BUN/Creatinine Ratio 25.4 Random Glucose 105 mg/dl Calcium Level 8.0 mg/dl Magnesium Level 2.2 mg/dl (Kari Ascencio PA-C) Assessment and Plan 82 year old female with history of hypertension. Fell while getting out of her walker and instantly developed right hip pain. Acute R Intertrochanteric Hip Fx with Distracted Lesser Trochanter 2/ Mechanical Fall: S/P R Nailing on 01/02 - Pain management with Dilaudid and Toradol - NO MORPHINE -- Will need to see what she has been on for pain in the past to reduce adverse reaction - ASA 81 mg BID - Orthopedics following - Dr. Vee planning on F/U in 2 weeks Acute Anemia: Asymptomatic - Is having some fatigue and nausea which may be more chronic but will have to watch. - Will repeat H&H in AM; no indication for transfusion at this time HTN: STABLE - Norvasc 10 mg daily and Losartan 50 mg daily DVT Prophylaxis: ASA BID Code Status: FULL RESUSCITATION Disposition: - Planning on [facility] tomorrow Continued [facility] stay due to: ambulation difficulties Discharge planning: rehab hospital (Kari Ascencio PA-C) Reviewed: Pt Seen/Exam by Me (Leeann Lennon MD) History Physician Quantitative Researcher Supervision Note: I interviewed and examined the patient. Discussed with DOREEN Ascencio and agree with findings and plan as documented in the note. Any exceptions or clarifications are listed here: Had nausea today. RNs report she is not motivated to get out of bed much at all. Had incontinence to urine a few times today. No abd pain. Discharge pushed back due to nausea Vitals reviewed Gen: AAOx3, NAD HEENT: anicteric sclerae, EOMI CV: RRR no mgr nl S1S2 Pulm: CTAB no wcr Abd: +BS soft NT ND no masses or hernias Ext: no edema, 2+ DP pulses bilaterally, right hip with dressing in place not removed but is clean dry and intact Skin: no rashes, warm/dry This patient is an 82-year-old female with history of HTN, GERD, breast cancer, here with mechanical fall resulting in right hip fracture. Expected post-operative Acute blood loss anemia-hemoglobin dropped down to 8.2 from 13 on admission-likely secondary to hip fracture and some hemodilution. Hemodynamically stable dc IVFs -DVT prophylaxis with aspirin 81 mg p.o. twice daily -Pain control with po dilaudid and tylenol -Continue losartan and amlodipine for HTN -for nausea-recommend stopping toradol and any NSAIDs in case of gastritis. She thinks related to her IBS? -Expect discharge to rehab tomorrow Documented By: Leeann Lennon (Leeann Lennon MD)
[2018-01-04] MEDS: AMLODIPINE BESYLATE 5 MG TAB PO SCH (19:24)
--- NOTE | 2018-01-04 20:24 | PROGRESS NOTE ---
DATE: 01/04/2018 SUBJECTIVE: An 82-year-old female postop day 2 from IM nailing of a right intertrochanteric fracture. She is doing pretty well. Having multiple joint aches and pains throughout today. Therapy has gone reasonably well. No chest pain or shortness of breath. Not feeling dizzy or lightheaded. OBJECTIVE: VITAL SIGNS: Temperature 37.5. Vital signs stable. GENERAL: Physical examination reveals a pleasant elderly female. Patient is lying in bed, looks pretty comfortable. EXTREMITIES: Examination of the right leg reveals the leg to be well aligned. Dressing is clean, dry, and intact. She is neurologically intact. LABORATORY DATA: Hemoglobin is 8.1, hematocrit 24.0; the repeat was 8.2 and 24.6, but stable. ASSESSMENT: An 82-year-old female postop day 2 from a right femur IM nailing for an intertrochanteric fracture, doing pretty well. Her hemoglobin is a bit low, but she is asymptomatic. It does appear stable and I think this is related to blood loss and just delusional. Does not appear to be actively bleeding from anywhere. PLAN: 1. DVT prophylaxis including thigh-high TEDs, SCDs, and we did recommend a baby aspirin twice a day for 4-6 weeks. 2. PT/OT. Patient can fully weightbear in the right leg. 3. Medical management as per the medicine service. 4. Disposition. I think this patient would best be served with a rehab stay. Social service is working on that. I need to see her back 2 weeks out from her surgery date. Any orthopedic questions can be directed to me at [phone].
[2018-01-04] MEDS: DOCUSATE SODIUM/SENNA 50/8.6MG TAB PO SCH (21:00)
[2018-01-04 23:45] VITALS: BP 144/71; PULSE 75; TEMP 37.9; O2SAT 92
[2018-01-05] MEDS ORDERED: NURSING VERBAL MED ORDER ONE (05:30)
[2018-01-05 06:46] LABS: HEMATOCRIT 23.6 % (37-47); MEAN CELL VOLUME 93.7 fL (80-100); MEAN CORPUSCULAR HEMOGLOBIN 31.7 pg (25-34); MEAN CORPUSCULAR HGB CONC 33.9 g/dl (32-36); MEAN PLATELET VOLUME 9.5 fL (7.4-10.4); PLATELET COUNT 175 K/uL (130-400); RED CELL DISTRIBUTION WIDTH SD 44.5 fL (36.4-46.3); WHITE BLOOD COUNT 10.76 K/uL (4.8-10.8)
[2018-01-05 07:14] LABS: CALCIUM 8.5 mg/dl (8.5-10.1); CREATININE 0.86 mg/dl (0.60-1.20); POTASSIUM 4.2 mmol/L (3.5-5.1)
[2018-01-05 07:15] VITALS: BP 160/62; PULSE 88; TEMP 37.3; O2SAT 92
[2018-01-05] MEDS: ASPIRIN 81 MG ECTAB PO SCH (07:55)
[2018-01-05] MEDS: MULTIVITAMIN TAB PO SCH (07:55)
[2018-01-05] MEDS: LOSARTAN POTASSIUM 50 MG TAB PO SCH (07:55)
[2018-01-05] MEDS: DOCUSATE SODIUM 100 MG CAP PO SCH (07:55)
[2018-01-05] MEDS ORDERED: B-CO1CAP3 (07:58)
[2018-01-05] MEDS: ACETAMINOPHEN 325 MG TAB PO PRN (08:04)
[2018-01-05] MEDS: KETOROLAC TROMETHAMINE 15 MG/ML VIAL IV. PRN (08:04)
[2018-01-05] MEDS: THIAMINE HCL 100 MG TAB PO SCH (08:06)
--- NOTE | 2018-01-05 08:30 | PROGRESS NOTE ---
DATE: 01/05/2018 SUBJECTIVE: An 82-year-old female postop day 3 from IM nailing of right intertrochanteric fracture. She is doing okay. It is still early this morning and really no new complaints. Seems to be having less other joint aches. Had a pretty good night. No chest pain or shortness of breath. Not feeling dizzy or lightheaded. OBJECTIVE: VITAL SIGNS: Temperature 37.9. Vital signs stable. GENERAL: Reveals a pleasant elderly female. Patient is lying in bed, looks pretty comfortable. EXTREMITIES: Examination of the right hip and leg reveals the leg to be well aligned. Dressing is clean, dry and intact. Fairly large soft tissue envelope. She is neurologically intact. LABORATORY DATA: Hemoglobin 8.0, hematocrit 23.6. Electrolytes are stable. ASSESSMENT: An 82-year-old female postop day 3 from IM nailing of a right intertrochanteric fracture. She is anemic, but without symptoms. Her hemoglobin and hematocrit are stable. The pain seems to be reasonably well controlled. She does have severe knee arthritis which is going to really limit her recovery. PLAN: 1. DVT prophylaxis including thigh high TEDs, SCDs, and we would recommend aspirin 81 mg twice a day for 6 weeks. 2. PT/OT. She can weightbear as tolerated in the right lower extremity. 3. Medical management as per the medicine service. 4. Disposition. I think she would best be served by a rehab stay. She is going to be a bit of a challenge due to her knee arthritis. I need to see her back 2 weeks out from surgery date. Any orthopedic questions can be directed to me at [phone]. She is orthopedically acceptable for discharge at any time.
[2018-01-05] MEDS ORDERED: DICLOFENAC SOD 1% GEL 100 GM TUBE EXT ONE (11:30)
[2018-01-05] MEDS ORDERED: FERROUS SULFATE 325 MG TAB PO ONE (11:30)
[2018-01-05] MEDS ORDERED: DLD/2 PO (11:50)
[2018-01-05] MEDS ORDERED: VLTG EXT (11:50)
[2018-01-05] MEDS ORDERED: ASPEC81 PO (11:50)
[2018-01-05] MEDS ORDERED: FRRS300 PO (11:50)
[2018-01-05] MEDS ORDERED: ACET-1047 PO (11:50)
[2018-01-05] MEDS ORDERED: ONDA4TAB10 SL (11:51)
--- NOTE | 2018-01-05 11:58 | Discharge Instructions ---
Discharge Instructions Date of Service Jan 05, 2018. Admission Reason for Admission: Hip Fracture Discharge Discharge Diagnosis / Problem: R Hip Fx S/P Nailing Discharge Goals Goal(s): Decrease discomfort, Improve function, Increase independence Activity Recommendations Activity Level: Assistance Required Therapies: Physical Therapy, Occupational Therapy Weightbearing Status: Left weightbearing (as tolerated), Right weightbearing ( as tolerated) . Additional Information Patient informed of condition: Yes Advance Directives: Yes DNR: No Level of Care: Acute Rehab Communicable Disease: No Prognosis: Improving Stephenson Catheter: No Instructions / Follow-Up Instructions / Follow-Up 82 year old female with history of hypertension. Fell while getting out of her walker and instantly developed right hip pain. Acute R Intertrochanteric Hip Fx with Distracted Lesser Trochanter / Mechanical Fall: S/P R Nailing on 01/02 - Pain management with Dilaudid po and Tylenol PRN and Voltaren gel (to b/l knees) - NO MORPHINE -- No adverse affect with Dilaudid -- Will need to see what she has been on for pain in the past to reduce adverse reaction - ASA 81 mg BID for DVT prophylaxis - continue for 4-6 weeks - Orthopedics followed - Dr. Vee planning on F/U in 2 weeks from surgical date to further evaluate Acute Anemia: Asymptomatic - Is having some fatigue and nausea which may be more chronic but will have to watch. Hemoglobin remains at 8 - Start ferrous sulfate 325 mg BID and monitor for constipation - Recommend repeat CBC in next 3-4 days to continue monitoring HTN: STABLE - Norvasc 10 mg daily and Losartan 50 mg daily DVT Prophylaxis: ASA BID Code Status: FULL RESUSCITATION Disposition: - F/U with Dr. Vee in 2 weeks from surgery date (01/02) - F/U with PCP in next 7-10 days pending rehab - CBC in next 3-4 days Current Hospital Diet Patient's current hospital diet: Regular Diet, Low Fiber Diet Discharge Diet Recommended Diet: Regular Diet, Low Fiber Diet Procedures Procedures Performed: Insertion of Intertrochanteric Nail Right Hip Pending Studies Studies pending at discharge: no Medical Emergencies . Who to Call and When: Medical Emergencies: If at any time you feel your situation is an emergency, please call 911 immediately. . Non-Emergent Contact Non-Emergency issues call your: Primary Care Provider Call Non-Emergent contact if: you have a fever, your pain is concerning you, you have any medication questions . . "Provider Documentation" section prepared by Kari Ascencio. . Core Measure Problem Core Measures: None [place] Drug Monitoring Program Search Results: patient reviewed within database, no issues identified
[2018-01-05 12:18] VITALS: BP 135/78; PULSE 71
[2018-01-05] MEDS ORDERED: DICLOFENAC SOD 1% GEL 100 GM TUBE EXT SCH (13:00)
[2018-01-05 14:32] VITALS: BP 135/78; PULSE 71; TEMP 37.3; O2SAT 92
[2018-01-05] MEDS ORDERED: FERROUS SULFATE 325 MG TAB PO SCH (21:00)
--- NOTE | 2018-01-05 21:15 | Discharge Summary ---
Discharge Summary Date of Service Jan 05, 2018. Discharge Summary Admission Date: Jan 01, 2018 at 15:34 Discharge Date: Jan 05, 2018 Discharge Disposition: Rehab Principal Diagnosis: Mechanical Fall with R Intertrochanteric Fx S/P Nailing Problems/Secondary Diagnoses: Medical Problems: 1. Hypertension 2. Hx Breast CA 3. GERD Past Surgical History 1. Cholecystectomy 2. Tonsillectomy 3. Hysterectomy Immunizations: Have You Had Influenza Vaccine: N/A History of Tetanus Vaccine?: UTD History of Pneumococcal: Yes Pneumococcal Date: May 24, 2008 History of Hepatitis B Vaccine: Yes Procedures: AP pelvis and right hip 4 views CLINICAL HISTORY: Right hip pain status post trauma COMPARISON STUDY: No previous studies for comparison. FINDINGS: There is an acute intertrochanteric right hip fracture with avulsion and distraction of the lesser trochanter. No fractures of the left hip are visualized. There is symphysis sclerosis. There is no symphysis diastases. There is no SI joint diastases. IMPRESSION: Acute intertrochanteric right hip fracture. The lesser trochanteric fragment is distracted x 1.5 cm. Consultations: 1. Orthopedic 2. PT/OT Medication Reconciliation New Medications: Ondasetron Odt (Zofran Odt) 4 Mg Tab 4 MG SL Q6H PRN for Nausea for 7 Days, #28 TAB Acetaminophen (Mapap) 325 Mg Tab 650 MG PO Q4H PRN for Pain or Fever for 30 Days, #240 TAB Aspirin (Aspirin EC Low Dose) 81 Mg Ectab 81 MG PO BID for 30 Days, #60 TABS Diclofenac Sod (Voltaren) 100 Appln/100 Gm Gel 1 APPLN EXT QID for 30 Days, #1 TUBE 1 Refill Apply to knees or any other aching joint Ferrous Sulfate (Ferrous Sulfate) 325 Mg Tab 325 MG PO BID for 30 Days, #60 TAB Hydromorphone HCl (Hydromorphone HCl) 2 Mg Tab 2 MG PO Q4H PRN for Pain for 3 Days, #12 TAB Continued Medications: Amlodipine Besylate (Norvasc) 10 Mg Tab 10 MG PO DAILYBD, TAB B-Complex Vitamins (B Complex) 1 Cap Cap Calcium Polycarbophil (Fiber) 625 Mg Tab 2 TAB PO DAILYBD Docusate Sodium (Colace) 100 Mg Cap 2 CAP PO QAM, CAP Losartan Potassium (Cozaar) 50 Mg Tab 50 MG PO QAM, TAB Multivitamin (Multivitamin) Tab 1 TAB PO QAM, TAB [place] 3 Fatty Acids-[place] 6 Fa ([place] 3-6-9 Complex) 1 Cap Cap 1 CAP PO QPM Omeprazole (Prilosec) 20 Mg Capcr 20 MG PO QAM PRN for GI Upset, CAP Polyethylene Glycol 3350 (Miralax) 1 Pow Pow 17 GM PO NOON, #255 GM Discontinued Medications: Aspirin (Aspirin Ec) 81 Mg Tab 81 MG PO DAILY@NOON Discharge Exam Review of Systems: Constitutional: No fever, No chills ENT: No nasal symptoms, No sore throat Respiratory: No cough, No shortness of breath Cardiovascular: No chest pain Abdomen: + nausea, No pain, No vomiting, No diarrhea, No constipation Musculoskeletal: + joint pain (mild intermittent R hip), No swelling, No calf pain Genitourinary - Female: No dysuria Hematologic / Lymphatic: No abnormal bleeding/bruising Integumentary: No rash Physical Exam: General Appearance: WD/WN, no apparent distress, + pertinent finding ( appears younger than age) Eyes: sclerae normal ENT: hearing grossly normal Neck: supple, no JVD, trachea midline Respiratory/Chest: lungs clear, normal breath sounds, no respiratory distress, no accessory muscle use Cardiovascular: regular rate, rhythm, no gallop, no murmur Abdomen / GI: normal bowel sounds, non tender, soft Extremities: no calf tenderness, no pedal edema, + pertinent finding Neurologic/Psychiatric: alert, oriented x 3 Skin: normal color, warm/dry Hospital Course ADMISSION: 82-year-old female with history of hypertension. Presented to the emergency department after a ground-level fall. She was in her rolling walker and went to stand up. When she did the walker kicked backwards and she fell straight to the ground landing on her right buttock. She immediately felt pain in the right hip area and was brought to the emergency department. She denies any recent fever, chills, nausea, vomiting or change in bowel or bladder function. She has had no recent cough. Patient was evaluated in emergency department and had imaging of her ankle and hip. Ankle x-ray showed no acute fractures or dislocations hip x-ray showed an acute intertrochanteric right hip fracture. The lesser trochanteric fragment is distracted by 1.5 cm. She was given fentanyl en route to the emergency department and had Toradol and Zofran while in the ED. Call was placed to the orthopedic surgeon and hospital medicine was asked to admit the patient. HOSPITAL COURSE: Acute R Intertrochanteric Hip Fx with Distracted Lesser Trochanter 2/ Mechanical Fall: S/P R Nailing on 01/02 - Pain is well controlled with Tylenol and will give Rx for Dilaudid 2 mg PRN for severe pain - Will provide Rx for Voltaren gel for b/l knees or other joint pains - ASA 81 mg BID for DVT prophylaxis - Dr. Vee planning on F/U in 2 weeks from surgery Acute Anemia: Asymptomatic - Hgb remaining stable at 8. Recommend recheck in 2-3 days - Started ferrous sulfate 325 mg BID HTN: STABLE - Norvasc 10 mg daily and Losartan 50 mg daily DVT Prophylaxis: ASA BID Disposition: [facility] for acute rehab Total Time Spent: Greater than 30 minutes This includes examination of the patient, discharge planning, medication reconciliation, and communication with other providers. Discharge Instructions Please refer to the electronic Patient Visit Report (Discharge Instructions) for additional information. Additional Copies To Van Lynn M.D.; [facility]
== END 2018-01-05 16:00 | DRG 481 ==
LOC: EDBD 13:00 → C.EDC 13:02 → C.MSN 15:34 → ENRESERV 15:57
PROVIDERS: ADMIT Family Medicine; ATTEND Internal Medicine
PROC: 0QS604Z Reposition Right Upper Femur with Internal Fixation Device, Open Approach (ICD-10-PCS; principal; 2018-01-01)
DX: S72.141A Displaced intertrochanteric fracture of right femur, initial encounter for closed fracture (principal); D62 Acute posthemorrhagic anemia; I10 Essential (primary) hypertension; K21.9 Gastro-esophageal reflux disease without esophagitis; Z85.3 Personal history of malignant neoplasm of breast; Z87.891 Personal history of nicotine dependence; Z79.82 Long term (current) use of aspirin; Y92.009 Unspecified place in unspecified non-institutional (private) residence as the place of occurrence of the external cause; Z90.710 Acquired absence of both cervix and uterus; Z85.41 Personal history of malignant neoplasm of cervix uteri; Z90.49 Acquired absence of other specified parts of digestive tract; W19.XXXA Unspecified fall, initial encounter

== ENCOUNTER → 2018-01-15 | Outpatient (CLI) | payer OTHER, MEDICARE ==
[~2018-01-15] MED LIST changes: +ACET-1047 PO; +ASPI-320 PO; +B-CO1CAP3; -CHOL100010 PO; +DLD/2 PO; +FRRS300 PO; +VLTG EXT
[2018-01-15 13:33] LABS: BASO % 0.4 %; BASO ABS # 0.03 K/uL (0-0.2); EOS % 3.1 %; EOS ABS # 0.26 K/uL (0-0.5); HEMATOCRIT 28.2 % (37-47); HEMOGLOBIN 8.9 g/dL (12.0-16.0); IG# 0.02 K/uL (0.00-0.02); LYMPH % 22.4 %; LYMPH ABS # 1.86 K/uL (1.2-3.4); MEAN CELL VOLUME 95.6 fL (80-100); MEAN CORPUSCULAR HEMOGLOBIN 30.2 pg (25-34); MEAN CORPUSCULAR HGB CONC 31.6 g/dl (32-36); MEAN PLATELET VOLUME 9.6 fL (7.4-10.4); MONO % 11.3 %; MONO ABS # 0.94 K/uL (0.11-0.59); NEUT % 62.6 %; PLATELET COUNT 481 K/uL (130-400); RED CELL DISTRIBUTION WIDTH CV 14.1 % (11.5-14.5); RED CELL DISTRIBUTION WIDTH SD 48.4 fL (36.4-46.3); WHITE BLOOD COUNT 8.31 K/uL (4.8-10.8)
--- NOTE | 2018-02-03 12:58 | CODING QUERY MEDICAL NECESSITY ---
TREATMENT RENDERED WITHOUT A DIAGNOSIS To promote full compliance with coding requirements relating to patient care, physician participation is requested in all cases of him coder uncertainty. Please assist us with providing a diagnosis/symptom for the test(s) below: A diagnosis/symptom was not documented on your Order. A valid diagnosis/symptom is required to bill all insurances. Please remember that we are unable to code a diagnosis of rule out, probable, possible, questionable, or suspected. Tests that require a diagnosis: DOS: 01/15/18 * CBC W/ AUTO DIFF DIAGNOSIS: Provider Signature: Date: Thank you Nettie Oro [email or web address] Information Management Once completed, please kindly fax back to [phone] For questions please call [phone]
== END | disposition home or self-care (01) ==
LOC: C.LABHSW 09:32
PROVIDERS: ATTEND Internal Medicine
DX: D64.9 Anemia, unspecified (principal)

== ENCOUNTER 2019-02-05 14:24 | Inpatient (IN) ==
--- OUTSIDE RECORDS SUMMARY | 2019-02-05 14:27 | External Medical Summary | Continuity of Care Document ---
:1935 Author Name Judith Perrin, Provider Address Unavailable Unavailable , Care Team Providers Name Role Phone Dilip BLANCACornelio Soni Unavailable [email or web address] Leah Perrin, [email or web address] nakia LYNN M.D. Unavailable Unavailable Unavailable Unavailable Unavailable Problems Constipation (564.00) (K59.00) Blurry vision (368.8) (H53.8) Diverticulitis of colon (562.11) (K57.32) Knee pain (719.46) (M25.569) Rash (782.1) (R21) Cerumen impaction (380.4) (H61.20) Allergic conjunctivitis and rhinitis (372.05) (H10.10) Conjunctivitis (372.30) (H10.9) Allergic dermatitis (692.9) (L23.9) Left shoulder pain (719.41) (M25.512) Hyperlipidemia (272.4) (E78.5) Hypertension (401.9) (I10) Vasovagal syncope (780.2) (R55) URI (upper respiratory infection) (465.9) (J06.9) SOB (shortness of breath) on exertion (786.05) (R06.02) Chest heaviness (786.59) (R07.89) Fever (780.60) (R50.9) Atrial fibrillation, unspecified type (427.31) (I48.91) Atrial fibrillation with RVR (427.31) (I48.91) Allergies and Adverse Reactions Augmentin TABS (Allergy) Lidocaine HCl (PF) SOLN (Allergy) morphine (Allergy) Medications amLODIPine Besylate 10 MG Oral Tablet; take 1 by mouth daily Marychuy Lynn Quantity: 90 Refills: 3 Colace 100 MG Oral Capsule; TAKE 1 CAPSULE DAILY. Refills: 0 [place]-3-6-9 Oral Capsule; TAKE 1 CAPSULE Daily Refills: 0 Multi-Vitamin TABS; TAKE 1 TABLET DAILY. Refills: 0 Fiber Therapy TABS; TAKE 1 TABLET AT BEDTIME. Refills: 0 MiraLax Oral Powder Refills: 0 Aspirin 81 MG TABS; TAKE 1 TABLET DAILY. Refills: 0 Vitamin B Complex CAPS; TAKE 1 CAPSULE Daily Refills: 0 Aleve TABS; TAKE 1 TABLET NEEDED Refills: 0 Losartan Potassium 50 MG Oral Tablet; Take 1 tablet da Marychuy Vega Quantity: 90 Refills: 3 Naproxen 500 MG Oral Tablet; TAKE 1 TABLET EVERY 12 HO URS WITH FOOD NEEDED. BLANCA Cherry Start: 31-Jul-2018 Quantity: 60 Refills: 1 Dicyclomine HCl - 10 MG Oral Capsule; TAKE 1 CAPSULE E VERY 6 HOURS NEEDED. Marychuy Lynn Start: 18-Jan-2019 Quantity: 30 Refills: 6 Procedures Lipid Profile - Fasting Date: 12-Jan-2019 X-ray Chest, PA and Lateral Routine Date: 05-Feb-2019 Immunizations Flulaval Quadrivalent 0.5 ML Intramuscular Suspension Prefilled Syringe On: 24-Aug-2016 Fluzone High-Dose 0.5 ML Intramuscular Suspension Pref illed Syringe On: 27-Jul-2018 13:57 Lot #: [id number], [employer] Family History Mother No pertinent family history (V49.89) (Z78.9) Status: Active Social History - Smoking Status Former smoker Plan of Treatment Planned Encounters Appointment; Van Lynn M.D. Start: 19-Jul-2019 15:45 R equest Planned Observations Planned Goals not documented Results In-House Molecular Flu (Pending) Laboratory: In House 05-Feb-2019 13:27 In-House Molecutlar Flu Negative. Vital Signs 05-Feb-2019 12:48 Systolic 97 mm[Hg] Diastolic 59 mm[Hg] Heart Rate 112 /min BMI Calculated 35.33 kg/m2 Weight 212.3 lb Temperature 98.6 f O2 Saturation 95 % Comments: Source: BSA Calculated 2.03 m2 18-Jan-2019 13:25 Systolic 143 mm[Hg] Diastolic 78 mm[Hg] Heart Rate 98 /min BMI Calculated 34.71 kg/m2 Weight 208.5625 lb BSA Calculated 2.01 m2 Encounters Appointment; Cornelio Cherry CRNP 05-Feb-2019 12:40 Encounter Diagnosis: Problem not documented Appointment; Van Lynn M.D. 18-Jan-2019 13:15 Encounter Diagnosis: Problem not documented Appointment; Cornelio Cherry CRNP 31-Jul-2018 11:20 Encounter Diagnosis: Problem not documented Appointment; Van Lynn M.D. 27-Jul-2018 13:15 Encounter Diagnosis: Problem not documented Appointment; Cornelio Cherry CRNP 13-Jun-2018 16:00 Encounter Diagnosis: Problem not documented Appointment; Cornelio Cherry CRNP 30-May-2018 11:00 Encounter Diagnosis: Problem not documented Appointment; Gillian Nurse 22-May-2018 15:00 Encounter Diagnosis: Problem not documented Appointment; Lisy Little DO 15-May-2018 16:30 Encounter Diagnosis: Problem not documented Appointment; Gillian Nurse 15-May-2018 16:15 Encounter Diagnosis: Problem not documented Appointment; Van Lynn M.D. 16-Feb-2018 15:45 Encounter Diagnosis: Problem not documented Appointment; Van Lynn M.D. 06-Oct-2017 15:45 Encounter Diagnosis: Problem not documented Appointment; Van Lnyn M.D. 14-Jul-2017 11:15 Encounter Diagnosis: Problem not documented Appointment; Van Lynn M.D. 19-Jul-2019 15:45 Encounter Diagnosis: Problem not documented
[2019-02-05] MEDS ORDERED: SODIUM CHLORIDE 0.9% 500 ML IV SCH (14:45)
[2019-02-05 14:49] LABS: Basophils # (auto) 0.01 K/uL (0-0.2); Basophils % (auto) 0.2 %; Eosinophils # (auto) 0.01 K/uL (0-0.5); Eosinophils % (auto) 0.2 %; Hematocrit (blood only) 38.1 % (37-47); Hemoglobin 13.1 g/dL (12.0-16.0); Immature Granulocytes # (auto) 0.01 K/uL (0.00-0.02); Immature Granulocytes % (auto) 0.2 %; Lymphocytes # (auto) 1.04 K/uL (1.2-3.4); Lymphocytes % (auto) 21.4 %; Mean Corpuscular Hgb Conc 34.4 g/dL (32-36); Mean Corpuscular Volume 90.1 fL (80-100); Monocytes # (auto) 0.59 K/uL (0.11-0.59); Monocytes % (auto) 12.2 %; Neutrophils # (auto) 3.19 K/uL (1.4-6.5); Neutrophils % (auto) 65.8 %; Platelet Count 215 K/uL (130-400); RDW Standard Deviation 42.5 fL (36.4-46.3); Red Blood Count 4.23 M/uL (4.2-5.4); White Blood Count 4.85 K/uL (4.8-10.8)
[2019-02-05 14:55] LABS: Albumin Level 3.8 gm/dl (3.4-5.0); BUN Creatinine Ratio 18.7 (10-20); Calcium 9.5 mg/dl (8.5-10.1); Creatinine Clr Calc Pharmacy 59.7 ml/min; Est GFR (African American) 76.2; Est GFR (Non-African American) 65.7; Magnesium 2.1 mg/dl (1.8-2.4); Potassium 3.5 mmol/L (3.5-5.1)
--- NOTE | 2019-02-05 14:55 | XRay Report ---
XR chest 1V portable CLINICAL HISTORY: weakness mental status change COMPARISON STUDY: No previous studies for comparison. FINDINGS: The bones soft tissues and hemidiaphragms are normal. The cardiomediastinal silhouette is n ormal. The lungs are clear. The pulmonary vasculature is normal. IMPRESSION: Negative chest. The above report was generated using voice recognition software. It may contain grammatical, syntax or spelling errors. Electronically signed by: Nader Reeder M.D. 02/05/2019 2:53 PM
[2019-02-05 15:05] LABS: Bilirubin,Total 0.5 mg/dl (0.2-1); Total Protein 7.8 gm/dl (6.4-8.2); Troponin I 0.029 ng/ml (0-0.045)
[2019-02-05 15:26] LABS: Influenza A virus by PCR Neg for Influ A (Neg); Influenza B virus by PCR Neg for Influ B (Neg)
[2019-02-05 15:41] LABS: INR 1.1 (0.9-1.1); Prothrombin Time 11.1 Seconds (9.0-12.0)
[2019-02-05] MEDS ORDERED: METOPROLOL TARTRATE 1 MG/ML VIAL IV STA (15:57)
[2019-02-05 16:34] LABS: Appearance Urine Clear (Clear); Bacteria Urine Automated Negative (Negative); Bilirubin Urine Negative (Negative); Blood Urine Trace (Negative); Color Urine Yellow; Glucose Urine UA Negative (Negative); Ketones Urine Negative (Negative); Leukocyte Esterase Urine 1+ (Negative); Nitrite Urine Negative (Negative); Protein Urine Negative (Negative); RBC Urine Automated 0-4 /hpf (0-4); Specific Gravity Urine 1.013 (1.000-1.030); Urobilinogen Urine Negative (Negative)
[2019-02-05] MEDS ORDERED: APIXABAN 5 MG TABLET PO STA (17:22)
[2019-02-05] MEDS ORDERED: METOPROLOL SUCC 50MG EXT REL TAB PO STA (18:22)
--- NOTE | 2019-02-05 18:33 | History & Physical Report ---
Date of Service February 05, 2019 Assessment & Plan (1) Atrial fibrillation with RVR: Observation with telemetry. Cardiology consultation. Cardiac echo. Discontinue amlodipine. Start metoprolol succinate and Eliquis. Serial troponins Present on Admission?: Yes (2) Viral illness: Supportive care. IV fluids. Tylenol as needed Present on Admission?: Yes (3) Essential hypertension: Amlodipine has been discontinued. Continue losartan. Metoprolol has been added (4) DVT prophylaxis: The patient is now on Eliquis History of Present Illness Chief Complaint: Viral symptoms Primary Care Provider: Van Lynn MD 83-year-old female with recent onset of viral symptoms and low-grade fever. She was at the physician's office today when she was found to have new onset atrial fibrillation with rapid ventricular rate. She denies any chest discomfort or shortness of breath. Chest x-ray is negative. Urine analysis is negative. No acute EKG changes. Initial troponin negative. She was administered Eliquis and IV metoprolol in the ED. She remains mildly tachycardic. Toprol-XL 50 mg will be started now and continue daily. Amlodipine will be discontinued. Thyroid profile is pending. She will be placed on observation with telemetry. Cardiac echo has been ordered along with cardiology consultation. Allergies Allergy/AdvReac Type Severity Reaction Status Date / Time morphine Allergy Severe "STOPPED Verified 02/05/19 15:25 BREATHING" cephalexin Allergy Intermediate HIVES Verified 02/05/19 15:25 hydrochlorothiazide Allergy Intermediate ? heart Verified 02/05/19 15:25 palpatations amoxicillin [From Augmentin] Allergy Unknown ON [facility] Verified 02/05/19 15:25 LIST Cipro Allergy Unknown Other Verified 01/01/18 18:27 ciprofloxacin Allergy Unknown Other Verified 02/05/19 15:25 clavulanic acid Allergy Unknown ON [facility] Verified 02/05/19 15:25 [From Augmentin] LIST lidocaine AdvReac Intermediate RASH Verified 02/05/19 15:25 Home Medications Home Medications Medication Instructions Recorded Confirmed Type amlodipine 10 mg PO QDD 02/05/19 02/05/19 History aspirin [Aspir-81] 81 mg PO QDL 02/05/19 02/05/19 History dicyclomine 10 mg PO Q6 PRN 02/05/19 02/05/19 History docusate sodium [Colace] 100 mg PO QAM 02/05/19 02/05/19 History fish,bora,flax oils-om3,6,9no1 1 cap PO QDD 02/05/19 02/05/19 History [[place] 3-6-9] losartan 50 mg PO QAM 02/05/19 02/05/19 History methylcellulose (laxative) [Fiber 500 mg PO HS 02/05/19 02/05/19 History Therapy (m-cellulose)] multivitamin 1 tab PO QDL 02/05/19 02/05/19 History naproxen 500 mg PO BID PRN 02/05/19 02/05/19 History naproxen sodium [Aleve] 220 mg PO DIRECTED PRN 02/05/19 02/05/19 History polyethylene glycol 3350 [Miralax] 17 g PO DAILY 02/05/19 02/05/19 History vitamin B complex 1 tab PO QDL 02/05/19 02/05/19 History Past Med/Surg History Medical History Essential hypertension (Chronic) Viral illness (Acute) Atrial fibrillation with RVR (Acute) IBS (irritable bowel syndrome) Incontinence Hip fracture No pertinent family history Surgical History No pertinent past surgical history Family History Other No pertinent family history Social History Preferred Language: Bahamian Communication Ability: Effective Visual Impairment: No Limitations Hearing Ability: Normal Feels Safe at Home: Yes Smoking Status: Former smoker Hx Alcohol Use: No Hx Substance Use: No Review of Systems Review of Systems: All systems reviewed & are unremarkable except as noted in HPI & below Constitutional: + fever, + sweats and + body aches Physical Exam Constitutional: WD/WN, vitals as above Eyes: PERRL, conjunctivae normal, anicteric sclerae ENMT: external ear and nose normal, oropharynx normal Neck: trachea midline, no thyromegaly Respiratory: normal respiratory effort, lungs clear to auscultation + cough Cardiovascular: Tachycardic irregular rhythm. Normal S1 and S2. No audible murmurs. Negative S3 Gastrointestinal (Abdomen): normal bowel sounds, soft, nontender, no hepatosplenomegaly Musculoskeletal: no cyanosis or clubbing, extremities motor strength 5/5 Skin: no rashes, warm and dry Neurologic: CN's II-XI intact bilaterally and moves all extremities; no focal motor deficits Results & Data Vital Signs (Past 12 Hours) Vital Signs Temp Pulse Resp BP Pulse Ox 02/05/19 18:01 95 H 22 154/87 H 02/05/19 18:00 100 H 20 02/05/19 17:48 37.3 C 02/05/19 17:30 87 21 02/05/19 17:02 80 20 02/05/19 17:01 80 20 168/67 H 02/05/19 16:18 102 H 159/94 H 02/05/19 16:12 112 H 17 159/94 H 93 02/05/19 16:00 36.9 C 113 H 22 167/93 H 91 02/05/19 15:31 105 H 20 150/72 H 02/05/19 15:01 100 H 17 148/74 H 92 02/05/19 14:41 93 02/05/19 14:38 105 H 17 164/94 H 88 L 02/05/19 14:35 101 H 21 94 02/05/19 14:31 36.8 C 101 H 23 175/114 H 93 02/05/19 14:27 97 H 29 H 175/114 H 94 Laboratory Results 02/05/19 14:00 02/05/19 14:00
--- NOTE | 2019-02-05 20:09 | Emergency Department Note ---
Entered by Elyssa Malik acting as a scribe for History of Present Illness General Chief complaint: Arrhythmia/Palpitations Stated complaint: afib/fever Time Seen by Provider: 02/05/19 14:38 Source: patient Mode of arrival: ambulatory Limitations: no limitations History of Present Illness Onset (ago): day(s) (this morning) Location: head (general) Pain Consistency: + constant Quality: + other (She describes the chest discomfort as heaviness. ) Associated symptoms: + chest pain (chest discomfort), + cough (with clear sputum production), + fever/chills (The patient complains of fever of 101. ), + weakness (fatigue) and + other (The patient denies ear pain and sore throat. The patient complains of body aches.); no nausea/vomiting Treatments prior to arrival: other (She notes that she last took Tylenol at 0930.) The patient is an 83 year old female w/ PMHx of a hip fracture, incontinence, and IBS who presents to the ED via EMS w/ CC of constant arrhythmia that onset yesterday. The patient states that she saw a [employer]ICE PRESIDENT in [place] this morning and was in atrial fibrillation with RVR. The patient complains of fever of 101, chest discomfort, fatigue, cough with clear sputum production, and body aches. She describes the chest discomfort as heaviness. The patient denies nausea, vomiting, ear pain, and sore throat. She states that she is a former smoker and does not drink or use drugs. She notes that she last took Tylenol at 0930. Home Medications Home Medications Medication Instructions Recorded Confirmed Type amlodipine 10 mg PO QDD 02/05/19 02/05/19 History aspirin [Aspir-81] 81 mg PO QDL 02/05/19 02/05/19 History dicyclomine 10 mg PO Q6 PRN 02/05/19 02/05/19 History docusate sodium [Colace] 100 mg PO QAM 02/05/19 02/05/19 History fish,bora,flax oils-om3,6,9no1 1 cap PO QDD 02/05/19 02/05/19 History [[place] 3-6-9] losartan 50 mg PO QAM 02/05/19 02/05/19 History methylcellulose (laxative) [Fiber 500 mg PO HS 02/05/19 02/05/19 History Therapy (m-cellulose)] multivitamin 1 tab PO QDL 02/05/19 02/05/19 History naproxen 500 mg PO BID PRN 02/05/19 02/05/19 History naproxen sodium [Aleve] 220 mg PO DIRECTED PRN 02/05/19 02/05/19 History polyethylene glycol 3350 [Miralax] 17 g PO DAILY 02/05/19 02/05/19 History vitamin B complex 1 tab PO QDL 02/05/19 02/05/19 History Allergies Allergy/AdvReac Type Severity Reaction Status Date / Time morphine Allergy Severe "STOPPED Verified 02/05/19 15:25 BREATHING" cephalexin Allergy Intermediate HIVES Verified 02/05/19 15:25 hydrochlorothiazide Allergy Intermediate ? heart Verified 02/05/19 15:25 palpatations amoxicillin [From Augmentin] Allergy Unknown ON [facility] Verified 02/05/19 15:25 LIST Cipro Allergy Unknown Other Verified 01/01/18 18:27 ciprofloxacin Allergy Unknown Other Verified 02/05/19 15:25 clavulanic acid Allergy Unknown ON [facility] Verified 02/05/19 15:25 [From Augmentin] LIST lidocaine AdvReac Intermediate RASH Verified 02/05/19 15:25 Past Med/Surg History Medical History Essential hypertension (Chronic) Viral illness (Acute) Atrial fibrillation with RVR (Acute) IBS (irritable bowel syndrome) Incontinence Hip fracture No pertinent family history Surgical History No pertinent past surgical history Family History Other No pertinent family history Social History Preferred Language: Maltese Communication Ability: Effective Visual Impairment: No Limitations Hearing Ability: Normal Feels Safe at Home: Yes Smoking Status: Former smoker Hx Alcohol Use: No Hx Substance Use: No Review of Systems See HPI for pertinent positives & negatives. and A total of 10 systems reviewed and were otherwise negative Physical Exam Vital Signs Vital Signs - 24 hr 02/05/19 14:27 02/05/19 14:31 02/05/19 14:35 Temperature 36.8 C Temperature Source Oral Sepsis Recent Fever Within 48 Hours No Sepsis Action Taken by Nursing No Action Required Pulse Rate 97 H 101 H 101 H Pulse Rate from SpO2 Sensor 104 H Pulse Rhythm Irregular Pulse Strength Normal Respiratory Rate 29 H 23 21 Blood Pressure 175/114 H 175/114 H Blood Pressure Mean 134 134 Blood Pressure Position Lying Pulse Oximetry 94 93 94 Oxygen Delivery Method Room Air Room Air 02/05/19 14:38 02/05/19 14:41 02/05/19 15:01 Temperature Temperature Source Sepsis Recent Fever Within 48 Hours Sepsis Action Taken by Nursing Pulse Rate 105 H 100 H Pulse Rate from SpO2 Sensor 108 H 103 H Pulse Rhythm Pulse Strength Respiratory Rate 17 17 Blood Pressure 164/94 H 148/74 H Blood Pressure Mean 117 98 Blood Pressure Position Pulse Oximetry 88 L 93 92 Oxygen Delivery Method Room Air 02/05/19 15:31 02/05/19 16:00 02/05/19 16:12 Temperature 36.9 C Temperature Source Sepsis Recent Fever Within 48 Hours Sepsis Action Taken by Nursing Pulse Rate 105 H 113 H 112 H Pulse Rate from SpO2 Sensor 113 H 112 H Pulse Rhythm Pulse Strength Respiratory Rate 20 22 17 Blood Pressure 150/72 H 167/93 H 159/94 H Blood Pressure Mean 98 117 115 Blood Pressure Position Pulse Oximetry 91 93 Oxygen Delivery Method 02/05/19 16:18 02/05/19 16:34 02/05/19 17:01 Temperature Temperature Source Sepsis Recent Fever Within 48 Hours Sepsis Action Taken by Nursing Pulse Rate 102 H 80 Pulse Rate from SpO2 Sensor Pulse Rhythm Pulse Strength Respiratory Rate 20 Blood Pressure 159/94 H 168/67 H Blood Pressure Mean 100 Blood Pressure Position Pulse Oximetry Oxygen Delivery Method Room Air 02/05/19 17:02 02/05/19 17:30 02/05/19 17:48 Temperature 37.3 C Temperature Source Axillary Sepsis Recent Fever Within 48 Hours Sepsis Action Taken by Nursing Pulse Rate 80 87 Pulse Rate from SpO2 Sensor Pulse Rhythm Pulse Strength Respiratory Rate 20 21 Blood Pressure Blood Pressure Mean Blood Pressure Position Pulse Oximetry Oxygen Delivery Method 02/05/19 18:00 02/05/19 18:01 02/05/19 18:43 Temperature Temperature Source Sepsis Recent Fever Within 48 Hours Sepsis Action Taken by Nursing Pulse Rate 100 H 95 H 99 H Pulse Rate from SpO2 Sensor 99 H Pulse Rhythm Pulse Strength Respiratory Rate 20 22 24 Blood Pressure 154/87 H 161/101 H Blood Pressure Mean 109 121 Blood Pressure Position Pulse Oximetry 93 Oxygen Delivery Method 02/05/19 19:00 02/05/19 19:01 02/05/19 19:16 Temperature Temperature Source Sepsis Recent Fever Within 48 Hours Sepsis Action Taken by Nursing Pulse Rate 95 H Pulse Rate from SpO2 Sensor 96 H Pulse Rhythm Pulse Strength Respiratory Rate 20 Blood Pressure 177/78 H Blood Pressure Mean 111 Blood Pressure Position Pulse Oximetry 93 Oxygen Delivery Method Room Air Room Air GENERAL: Well appearing, well nourished, NAD, non-toxic. Patient looks younger than stated age. EYE EXAM: Normal conjunctiva. PERRL, no anisocoria and EOM's grossly intact w/o pain. OROPHARYNX: Moist mucus membranes. Grossly normal dentition. No exudate, posterior pharynx is clear, no tonsillar/uvular deviation or swelling. NECK: Supple, no nuchal rigidity, no adenopathy, non-tender. no signs of meningismus. LUNGS: Clear to auscultation. Normal chest wall mechanics. HEART: NSR, no MRG. Irregular rate and rhythm. ABDOMEN: Abdomen soft, non-tender, normo-active bowel sounds, no masses, no rebound or guarding. BACK: No CVA TTP. SKIN: No rashes and no bruising. UPPER EXTREMITIES: Upper extremities are grossly normal. LOWER EXTREMITIES: No pitting edema. No calf pain. Negative Claudia's sign, NEURO EXAM: A&O x3, cranial nerves II-XII grossly intact, normal speech, moves all 4 extremities on command w/o issue. Course 1430: Past medical records reviewed. The patient was evaluated in room C3. A complete history and physical examination was performed. 155: I reviewed the patient's case with Dr. Holder - Cardiology. He states that he would start her on anticoagulates, low dose beta blockers, and promptly follow up with cardiology. 1649: The patient states that she is feeling better. I will repeat the troponin and urinalysis. 1750: The patient states that she wants to stay in the hospital. I will consult the hospitalist. 1754: I reviewed the patient's case with Dr. Kiara Yee - [facility]. He will evaluate the patient for further management. Consultations Consultation #1: [id number]: I reviewed the patient's case with Dr. Kiara Yee - [facility]. He will evaluate the patient for further management. Time: 17:55 Administered Medications Discontinued Medications Apixaban (Eliquis) 5 mg PO NOW STA Stop: 02/05/19 17:23 Last Admin: 02/05/19 17:46 Dose: 5 mg Documented by: [id number] Sodium Chloride (Nss) 500 mls @ 999 mls/hr IV .Q31M DEONDRE Stop: 02/05/19 15:15 Last Infusion: 02/05/19 15:16 Dose: 0 mls/hr Documented by: [id number] Admin: 02/05/19 14:49 Dose: 999 mls/hr Documented by: [id number] Metoprolol Succinate (Toprol Xl) 50 mg PO NOW STA Stop: 02/05/19 18:23 Last Admin: 02/05/19 18:27 Dose: 50 mg Documented by: [id number] Metoprolol Tartrate (Lopressor) 5 mg IV NOW STA Stop: 02/05/19 15:58 Last Admin: 02/05/19 16:18 Dose: 5 mg Documented by: [id number] Medical Decision Making Medical Records Attestation: I reviewed the patient's medical records. Home Medications Current Medication List: was personally reviewed by me Laboratory Data Attestation: I reviewed the patient's lab results. Result diagrams: 02/05/19 14:00 02/05/19 14:00 Lab Results 02/05/19 02/05/19 02/05/19 Range/Units 14:00 14:00 14:00 WBC 4.85 (4.8-10.8) K/uL RBC 4.23 (4.2-5.4) M/uL Hgb 13.1 (12.0-16.0) g/dL Hct 38.1 (37-47) % MCV 90.1 (80-100) fL MCH 31.0 (25-34) pg MCHC 34.4 (32-36) g/dL RDW Std Deviation 42.5 (36.4-46.3) fL RDW Coeff of Purnima 13.0 (11.5-14.5) % Plt Count 215 (130-400) K/uL MPV 10.0 (7.4-10.4) fL Immature Gran % (Auto) 0.2 % Neut % (Auto) 65.8 % Lymph % (Auto) 21.4 % [place] % (Auto) 12.2 % Eos % (Auto) 0.2 % Baso % (Auto) 0.2 % Immature Gran # (Auto) 0.01 (0.00-0.02) K/uL Neut # (Auto) 3.19 (1.4-6.5) K/uL Lymph # (Auto) 1.04 L (1.2-3.4) K/uL [place] # (Auto) 0.59 (0.11-0.59) K/uL Eos # (Auto) 0.01 (0-0.5) K/uL Baso # (Auto) 0.01 (0-0.2) K/uL PT Cancelled INR Cancelled Sodium 137 (136-145) mmol/L Potassium 3.5 (3.5-5.1) mmol/L Chloride 105 (98-107) mmol/L Carbon Dioxide 23 (21-32) mmol/L Anion Gap 9.0 (3-11) BUN 15 (7-18) mg/dl Creatinine 0.82 (0.6-1.2) mg/dl Est Cr Clr Drug Dosing 59.7 ml/min Est GFR ( Amer) 76.2 Est GFR (Non-Af Amer) 65.7 BUN/Creatinine Ratio 18.7 (10-20) Glucose 103 H (70-99) mg/dl Calcium 9.5 (8.5-10.1) mg/dl Magnesium 2.1 (1.8-2.4) mg/dl Total Bilirubin 0.5 (0.2-1) mg/dl AST 27 (15-37) U/L ALT 29 (12-78) U/L Alkaline Phosphatase 116 (45-117) U/L Troponin I 0.029 (0-0.045) ng/ml Total Protein 7.8 (6.4-8.2) gm/dl Albumin 3.8 (3.4-5.0) gm/dl Globulin 4.0 (2.5-4.0) gm/dl Albumin/Globulin Ratio 1.0 (0.9-2) TSH 0.822 (0.300-4.500) uIu/ml Urine Color Urine Appearance (Clear) Urine pH (4.5-7.5) Ur Specific [place] (1.000-1.030) Urine Protein (Negative) Urine Glucose (UA) (Negative) Urine Ketones (Negative) Urine Blood (Negative) Urine Nitrite (Negative) Urine Bilirubin (Negative) Urine Urobilinogen (Negative) Ur Leukocyte Esterase (Negative) Urine WBC (Auto) (0-5) /hpf Urine RBC (Auto) (0-4) /hpf U Hyaline Cast (Auto) (0-5) /lpf U Epithel Cells (Auto) (0-5) /lpf Urine Bacteria (Auto) (Negative) Influenza Type A (PCR) (Neg) Influenza Type B (PCR) (Neg) 02/05/19 02/05/19 02/05/19 Range/Units 14:45 15:25 16:07 WBC (4.8-10.8) K/uL RBC (4.2-5.4) M/uL Hgb (12.0-16.0) g/dL Hct (37-47) % MCV (80-100) fL MCH (25-34) pg MCHC (32-36) g/dL RDW Std Deviation (36.4-46.3) fL RDW Coeff of Purnima (11.5-14.5) % Plt Count (130-400) K/uL MPV (7.4-10.4) fL Immature Gran % (Auto) % Neut % (Auto) % Lymph % (Auto) % [place] % (Auto) % Eos % (Auto) % Baso % (Auto) % Immature Gran # (Auto) (0.00-0.02) K/uL Neut # (Auto) (1.4-6.5) K/uL Lymph # (Auto) (1.2-3.4) K/uL [place] # (Auto) (0.11-0.59) K/uL Eos # (Auto) (0-0.5) K/uL Baso # (Auto) (0-0.2) K/uL PT 11.1 INR 1.1 Sodium (136-145) mmol/L Potassium (3.5-5.1) mmol/L Chloride (98-107) mmol/L Carbon Dioxide (21-32) mmol/L Anion Gap (3-11) BUN (7-18) mg/dl Creatinine (0.6-1.2) mg/dl Est Cr Clr Drug Dosing ml/min Est GFR ( Amer) Est GFR (Non-Af Amer) BUN/Creatinine Ratio (10-20) Glucose (70-99) mg/dl Calcium (8.5-10.1) mg/dl Magnesium (1.8-2.4) mg/dl Total Bilirubin (0.2-1) mg/dl AST (15-37) U/L ALT (12-78) U/L Alkaline Phosphatase (45-117) U/L Troponin I (0-0.045) ng/ml Total Protein (6.4-8.2) gm/dl Albumin (3.4-5.0) gm/dl Globulin (2.5-4.0) gm/dl Albumin/Globulin Ratio (0.9-2) TSH (0.300-4.500) uIu/ml Urine Color Yellow Urine Appearance Clear (Clear) Urine pH 6.0 (4.5-7.5) Ur Specific [place] 1.013 (1.000-1.030) Urine Protein Negative (Negative) Urine Glucose (UA) Negative (Negative) Urine Ketones Negative (Negative) Urine Blood Trace H (Negative) Urine Nitrite Negative (Negative) Urine Bilirubin Negative (Negative) Urine Urobilinogen Negative (Negative) Ur Leukocyte Esterase 1+ H (Negative) Urine WBC (Auto) 5-10 H (0-5) /hpf Urine RBC (Auto) 0-4 (0-4) /hpf U Hyaline Cast (Auto) 1-5 (0-5) /lpf U Epithel Cells (Auto) 10-20 H (0-5) /lpf Urine Bacteria (Auto) Negative (Negative) Influenza Type A (PCR) Neg for Influ A (Neg) Influenza Type B (PCR) Neg for Influ B (Neg) 02/05/19 Range/Units 16:17 WBC (4.8-10.8) K/uL RBC (4.2-5.4) M/uL Hgb (12.0-16.0) g/dL Hct (37-47) % MCV (80-100) fL MCH (25-34) pg MCHC (32-36) g/dL RDW Std Deviation (36.4-46.3) fL RDW Coeff of [place] (11.5-14.5) % Plt Count (130-400) K/uL MPV (7.4-10.4) fL Immature Gran % (Auto) % Neut % (Auto) % Lymph % (Auto) % [place] % (Auto) % Eos % (Auto) % Baso % (Auto) % Immature Gran # (Auto) (0.00-0.02) K/uL Neut # (Auto) (1.4-6.5) K/uL Lymph # (Auto) (1.2-3.4) K/uL [place] # (Auto) (0.11-0.59) K/uL Eos # (Auto) (0-0.5) K/uL Baso # (Auto) (0-0.2) K/uL PT INR Sodium (136-145) mmol/L Potassium (3.5-5.1) mmol/L Chloride (98-107) mmol/L Carbon Dioxide (21-32) mmol/L Anion Gap (3-11) BUN (7-18) mg/dl Creatinine (0.6-1.2) mg/dl Est Cr Clr Drug Dosing ml/min Est GFR ( Amer) Est GFR (Non-Af Amer) BUN/Creatinine Ratio (10-20) Glucose (70-99) mg/dl Calcium (8.5-10.1) mg/dl Magnesium (1.8-2.4) mg/dl Total Bilirubin (0.2-1) mg/dl AST (15-37) U/L ALT (12-78) U/L Alkaline Phosphatase (45-117) U/L Troponin I 0.030 (0-0.045) ng/ml Total Protein (6.4-8.2) gm/dl Albumin (3.4-5.0) gm/dl Globulin (2.5-4.0) gm/dl Albumin/Globulin Ratio (0.9-2) TSH (0.300-4.500) uIu/ml Urine Color Urine Appearance (Clear) Urine pH (4.5-7.5) Ur Specific [place] (1.000-1.030) Urine Protein (Negative) Urine Glucose (UA) (Negative) Urine Ketones (Negative) Urine Blood (Negative) Urine Nitrite (Negative) Urine Bilirubin (Negative) Urine Urobilinogen (Negative) Ur Leukocyte Esterase (Negative) Urine WBC (Auto) (0-5) /hpf Urine RBC (Auto) (0-4) /hpf U Hyaline Cast (Auto) (0-5) /lpf U Epithel Cells (Auto) (0-5) /lpf Urine Bacteria (Auto) (Negative) Influenza Type A (PCR) (Neg) Influenza Type B (PCR) (Neg) Imaging Data Radiologist's Impression: Radiology results as stated below per my review and the radiologist's interpretation: XR chest 1V portable CLINICAL HISTORY: weakness mental status change COMPARISON STUDY: No previous studies for comparison. FINDINGS: The bones soft tissues and hemidiaphragms are normal. The cardiomediastinal silhouette is normal. The lungs are clear. The pulmonary vasculature is normal. IMPRESSION: Negative chest. The above report was generated using voice recognition software. It may contain grammatical, syntax or spelling errors. Electronically signed by: Nader Reeder M.D. 02/05/2019 2:53 PM Dictated: 02/05/191452 Transcribed: 02/05/191452 ECG Data Attestation: I personally reviewed and interpreted this ECG as follows: Indication: palpitations Rate (beats per minute): 101 Rhythm: atrial fibrillation (with RVR) Findings: + other (RVR, long QRS, no obvious ischemic change), + RBBB and + left axis deviation Blood Pressure Blood Pressure Findings: Elevated blood pressure Blood Pressure Disposition: further management by hospitalist MDM Narrative The patient is an 83 female w/ PMHx of a hip fracture, incontinence, and IBS who presents to the ED via EMS w/ CC of constant arrhythmia that onset yesterday. Differential diagnoses: Premature contractions, electrolyte abnormality, cardiac dysrhythmia, thyroid dysfunction, pulmonary embolism, infection, gastrointestinal, as well as others were entertained Patient was seen and evaluated the bedside. The patient relates that she was having some infectious symptoms with a low-grade fever beginning yesterday. The patient has complained of a mild productive cough that is not purulent. Patient states that she did have some body aches. Patient denies any recent travel no sick contacts. The patient states otherwise she feels well. The patient did have some mild chest heaviness today. The patient was noted to be in A. fib with RVR in clinic and has no prior history so was referred here for further evaluation treatment. Patient is very well-appearing at the bedside. Patient does not appear to be in extremis. Patient does have A. fib with RVR with heart rates in the low 100s. Patient did have blood work completed with EKG troponin chest x-ray TSH was gi francisco javier some IV fluids. Patient also did have a urinalysis and flu swab obtained. No obvious ischemic change seen on EKG. Patient does relate that she has been taking some Bentyl for IBS. Given this is an antihistamine and antispasmodic this may be somewhat contributory. Patient does have a chads 2 vascular score of 3. May benefit from anti-coagulation. I did speak with the on-call quarter folder who recommended anticoagulant medication and associated low-dose beta-faith if the patient was suitable for discharge. The patient has a normal H&H white count. Troponin is detectable but not elevated. The patient's chest x-ray is otherwise fairly clear. EKG does not show any acute ischemic change. Flu negative. Electrolytes within normal limits. Given that the patient lives by herself with new onset A. fib the patient is concerned about going home I did speak with the on-call hospitalist agreed to further evaluate treat the patient. Patient was admitted to the medicine service. Impression & Plan Atrial fibrillation with RVR, Dehydration, Fever Discharge Plan Visit Data Chief Complaint: Arrhythmia/Palpitations Stated Complaint: afib/fever ED Provider: Angel Rosenthal Discharge Problem: Atrial fibrillation with RVR, Dehydration, Fever Patient Disposition: Being Evaluated by Hospitalist Discharge Instructions Interventions: ED Discharge Assessment Last Done: 02/05/19 19:16 Discharge Problem: Fever Qualifiers: Fever type: unspecified Qualified Code(s): R50.9 - Fever, unspecified The scribe's documentation has been prepared under my direction and personally reviewed by me in its entirety. I confirm that the note above accurately reflects all work, treatment, procedures, and medical decision making performed by me.
[2019-02-05] MEDS ORDERED: ALUMINUM/MAGNESIUM SUSP 30 ML UDC PO PRN (20:21)
[2019-02-05] MEDS ORDERED: ONDANSETRON INJ 2 MG/ML 2 ML VIAL IV PRN (20:21)
[2019-02-05] MEDS ORDERED: DICYCLOMINE HCL 10 MG CAP PO PRN (20:21)
[2019-02-05] MEDS ORDERED: NAPROXEN 250 MG TAB PO PRN ×2 (20:21)
[2019-02-05] MEDS: SODIUM CHLORIDE 0.9% 1000ML 1,000 ML IV SCH (20:58)
[2019-02-05] MEDS: ACETAMINOPHEN 325 MG TAB PO PRN (21:04)
[2019-02-05] MEDS: METHYLCELLULOSE POWDER 454 GM JAR PO SCH (21:31)
[2019-02-05] MEDS: APIXABAN 5 MG TABLET PO SCH (21:31)
[2019-02-05 22:51] LABS: T4 Free Thyroxine 1.19 ng/dl (0.8-1.6)
[2019-02-06] MEDS ORDERED: METOPROLOL SUCC 50MG EXT REL TAB PO SCH (09:00)
[2019-02-06] MEDS: ACETAMINOPHEN 325 MG TAB PO PRN (09:04)
[2019-02-06] MEDS: APIXABAN 5 MG TABLET PO SCH ×2 (09:04→21:35)
[2019-02-06] MEDS: LOSARTAN POTASSIUM 50 MG TAB PO SCH (09:05)
[2019-02-06] MEDS: DOCUSATE SODIUM 100 MG CAP PO SCH (09:05)
[2019-02-06] MEDS: POLYETHYLENE (MIRALAX) 17 GM PACK PO SCH (09:07)
[2019-02-06] MEDS ORDERED: METOPROLOL SUCC 50MG EXT REL TAB PO STA (09:24)
[2019-02-06] MEDS: SODIUM CHLORIDE 0.9% 1000ML 1,000 ML IV SCH ×2 (09:37→21:41)
--- NOTE | 2019-02-06 09:57 | Cardiology Consultation ---
Date of Consultation February 06, 2019 Assessment & Plan (1) Atrial fibrillation with RVR: The patient may have converted to sinus rhythm by her EKG tracing this morning. In any event, would continue with rate control long-term anticoagulation as her dysrhythmia is asymptomatic. Would increase metoprolol succinate to 100 mg daily. (2) Essential hypertension: Adequate control on current medical regimen. (3) Hypercholesterolemia: The patient has chosen not to take statins. Fasting lipid panel performed back in July noted an LDL cholesterol 104, and an HDL of 76. 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 This remains stable. History of Present Illness Attending Physician: Juno Tinoco DO History of Present Illness The patient is an 83-year-old white female admitted yesterday with new onset atrial fibrillation with a rapid ventricular response. This consultation was ordered to assist in her cardiac management. Of note, the patient is well known to me from the outpatient setting. The patient was in her usual state of health until approximately 4 days prior to presentation. She began to note symptoms of an upper respiratory infection including fatigue, intermittent fever, chest congestion, and nonproductive cough. The patient presented to her primary care office yesterday and was found to be in atrial fibrillation with a rapid ventricular response. She was sent to the emergency room by ambulance for further care. The patient has never known of atrial fibrillation. She has never experienced palpitations, including her presentation yesterday. She was started on metoprolol succinate and Eliquis in the emergency room. The patient does not experience exertional chest pain or limiting dyspnea. She further denies syncope, presyncope, PND, orthopnea, lower extremity edema, and claudication. Her medications reviewed in detail. Currently, patient is resting comfortably in bed without complaints of palpitations. 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 Review of systems A 10 point review of systems was undertaken negative except for that described above. Allergies Allergy/AdvReac Type Severity Reaction Status Date / Time morphine Allergy Severe "STOPPED Verified 02/05/19 15:25 BREATHING" cephalexin Allergy Intermediate HIVES Verified 02/05/19 15:25 hydrochlorothiazide Allergy Intermediate ? heart Verified 02/05/19 15:25 palpatations amoxicillin [From Augmentin] Allergy Unknown ON [facility] Verified 02/05/19 15:25 LIST Cipro Allergy Unknown Other Verified 01/01/18 18:27 ciprofloxacin Allergy Unknown Other Verified 02/05/19 15:25 clavulanic acid Allergy Unknown ON [facility] Verified 02/05/19 15:25 [From Augmentin] LIST lidocaine AdvReac Intermediate RASH Verified 02/05/19 15:25 Home Medications Home Medications Medication Instructions Recorded Confirmed Type amlodipine 10 mg PO QDD 02/05/19 02/05/19 History aspirin [Aspir-81] 81 mg PO QDL 02/05/19 02/05/19 History dicyclomine 10 mg PO Q6 PRN 02/05/19 02/05/19 History docusate sodium [Colace] 100 mg PO QAM 02/05/19 02/05/19 History fish,bora,flax oils-om3,6,9no1 1 cap PO QDD 02/05/19 02/05/19 History [[place] 3-6-9] losartan 50 mg PO QAM 02/05/19 02/05/19 History methylcellulose (laxative) [Fiber 500 mg PO HS 02/05/19 02/05/19 History Therapy (m-cellulose)] multivitamin 1 tab PO QDL 02/05/19 02/05/19 History naproxen 500 mg PO BID PRN 02/05/19 02/05/19 History naproxen sodium [Aleve] 220 mg PO DIRECTED PRN 02/05/19 02/05/19 History polyethylene glycol 3350 [Miralax] 17 g PO DAILY 02/05/19 02/05/19 History vitamin B complex 1 tab PO QDL 02/05/19 02/05/19 History Patient History Medical History Essential hypertension (Chronic) Viral illness (Acute) Atrial fibrillation with RVR (Acute) IBS (irritable bowel syndrome) Incontinence Hip fracture No pertinent family history Surgical History No pertinent past surgical history Family History Other No pertinent family history Social History Preferred Language: Ethiopian Communication Ability: Effective Visual Impairment: No Limitations Hearing Ability: Normal Chemical Checker Required: No Beliefs That Will Affect Care: None Current Living Situation: Family Other Information That Helps Us Care for You: No Feels Safe at Home: Yes Safety Concerns: Feels Safe At This Time Smoking Status: Former smoker Do You Dip or Chew Tobacco: No Second Hand Exposure: No Hx Alcohol Use: No Hx Substance Use: No Physical Exam Physical Exam: In general this is an obese white female lying supine in bed without complaints. HEENT exam is negative. Neck is supple with full carotid upstrokes. There are no carotid bruits. Jugular venous pressure is flat at 90 degrees. There is no thyromegaly. Cardiovascular exam reveals an irregular rhythm with distant heart sounds. No obvious murmurs. No S3. Lungs are clear without rales, rhonchi or wheezes. Abdomen is soft that bruits. Extremities r eveal intact radial artery pulses bilaterally. There is trace pretibial edema. Results & Data Vital Signs (Past 12 Hours) Vital Signs Temp Pulse Resp BP Pulse Ox 02/06/19 08:21 38.4 C H 73 18 170/82 H 98 02/06/19 03:27 38.4 C H 81 18 158/78 H 95 02/05/19 23:47 37.9 C H 83 16 129/63 93 Laboratory Results CBC notes a hemoglobin of 13.1, hematocrit 38.1, white count 4.85, and a platelet count of [id number]. Electrolytes note a sodium of 137, potassium 3.5, chloride 105, bicarb 23, BUN 15, creatinine 0.82, and a glucose of 103. Magnesium level is normal at 2.1. Five separate troponins are all normal with a peak at 0.044. TSH is normal at 0.822. Diagnostic Findings Initial EKG notes atrial fibrillation with a rapid ventricular response, complete right bundle-branch block, left anterior hemiblock. Tracing this morning notes baseline artifact but may represent sinus rhythm. Complete right bundle-branch block and a left anterior hemiblock again noted. Chest x-ray shows no acute disease.
[2019-02-06] MEDS: MULTIVITAMIN TAB PO SCH (12:08)
[2019-02-06] MEDS: VITAMIN B COMPLEX TAB PO SCH (12:08)
[2019-02-06] MEDS: ASPIRIN 81 MG ECTAB PO SCH (12:09)
[2019-02-06] MEDS: OMEGA-3 (PURIFIED FISH OIL) 1 GM CAP PO SCH (16:23)
[2019-02-06 17:04] LABS: Lyme Ab IgG w/WB Rflx Negative (Negative); Lyme Ab IgM w/WB Rflx Negative (Negative)
--- NOTE | 2019-02-06 20:19 | Hospitalist Progress Note ---
Date of Service February 06, 2019 Assessment & Plan (1) Atrial fibrillation with RVR: - New onset found incidentally at PCP office - Largely rate controlled but did have burst of possible A Fib/Flutter this AM with rates around 120 bpm; now in NSR - Discussed with cardiology and plan to increase to Toprol XL 100 mg daily and monitor for rate control - Eliquis 5 mg BID -- Rx ran through pharmacy and once deductible is met will be $37/month - patient is not sure if that is something she would want to pay consistently - could consider Warfarin if not Present on Admission?: Yes (2) Viral illness: - Largely febrile through the day - only symptoms point to sinusitis - Lyme titers given gardening and frequency of being outdoors; Started Doxycycline 100 mg BID which would cover both tick-borne and sinusitis - Will obtain procalcitonin to better differentiate; Tylenol PRN Present on Admission?: Yes (3) Essential hypertension: - Amlodipine D/C'd in favor of BB therapy; Continue Losartan 50 mg daily; Toprol XL 100 mg daily Present on Admission?: Yes (4) DVT prophylaxis: - Eliquis Disposition: Monitoring for rate control; monitor fever and likely can D/C tomorrow Subjective Patient reports feeling a little bit better. Still largely febrile over the day. Only symptoms are body aches, postnasal drip, sinus congestion/tenderness and chest congestion from PND. CXR unremarkable for PNA and procalcitonin is pending. Likely viral etiology but given her gardening and symptoms did start Doxycyline and obtained Lyme titers. Verbalizes no other complaints at this time. Review of Systems Constitutional: + fever, + body aches and + fatigue; no chills Eyes: no worsening vision Ear, Nose, Mouth, Throat: + nasal congestion, + nasal discharge (clear), + post nasal drip and + sinus pain/pressure; no sore throat Respiratory: + cough and + sputum production; no dyspnea Cardiovascular: no chest pain, no palpitations, no lightheadedness and no edema Gastrointestinal: + cramping (chronic intermittent spasms); no abdominal pain, no nausea, no vomiting, no constipation and no diarrhea/loose stools Genitourinary: no dysuria Musculoskeletal: + body aches Integumentary: no rash Physical Exam Constitutional: WD/WN, vitals as above Eyes: + anicteric sclerae ENMT: Ears: no hearing impairment Nose: + sinus tenderness (R maxillary) Throat: uvula midline; no posterior oropharynx abnormality Neck: normal visual inspection and trachea midline Respiratory: normal respiratory effort, lungs clear to auscultation Cardiovascular: Rate/Rhythm: regular rate and regular rhythm Gastrointestinal (Abdomen): Inspection/Auscultation: normal bowel sounds Percussion/Palpation: abdomen soft; abdomen nontender Musculoskeletal: Head/Neck/Chest: normocephalic and head atraumatic Extremities: no cyanosis and no clubbing Skin: no rashes, warm and dry Neurologic: moves all extremities Psychiatric: A+Ox3, euthymic affect Lymphatic: no lymphadenopathy Results & Data Vital Signs (Past 12 Hours) Vital Signs Temp Pulse Resp BP Pulse Ox 02/06/19 19:02 38.7 C H 82 18 136/72 93 02/06/19 15:27 37.1 C 85 18 133/74 93 02/06/19 12:09 37.3 C 85 18 130/74 93 02/06/19 08:21 38.4 C H 73 18 170/82 H 98
[2019-02-06] MEDS: DOXYCYCLINE HYCLATE 100 MG CAP PO SCH (21:35)
[2019-02-06] MEDS: METHYLCELLULOSE POWDER 454 GM JAR PO SCH (21:41)
[2019-02-06 22:47] LABS: Procalcitonin 0.18 ng/ml (0-0.5)
[2019-02-07] MEDS: DOXYCYCLINE HYCLATE 100 MG CAP PO SCH ×2 (08:41→20:02)
[2019-02-07] MEDS: APIXABAN 5 MG TABLET PO SCH ×2 (08:41→20:02)
[2019-02-07] MEDS: METOPROLOL SUCC 50MG EXT REL TAB PO SCH (08:41)
[2019-02-07] MEDS: LOSARTAN POTASSIUM 50 MG TAB PO SCH (08:41)
[2019-02-07] MEDS: DOCUSATE SODIUM 100 MG CAP PO SCH (08:41)
[2019-02-07] MEDS: POLYETHYLENE (MIRALAX) 17 GM PACK PO SCH (08:42)
[2019-02-07] MEDS ORDERED: cefTRIAXone SODIUM 2,000 MG in DEXTROSE 5% 50 ML IV SCH (10:00)
[2019-02-07 10:31] LABS: Hematocrit (blood only) 32.9 % (37-47); Hemoglobin 11.5 g/dL (12.0-16.0); Mean Corpuscular Volume 90.4 fL (80-100); Mean Platelet Volume 9.7 fL (7.4-10.4); Platelet Count 151 K/uL (130-400); RDW Standard Deviation 43.2 fL (36.4-46.3); Red Blood Count 3.64 M/uL (4.2-5.4); White Blood Count 6.39 K/uL (4.8-10.8)
[2019-02-07 11:05] LABS: BUN Creatinine Ratio 20.4 (10-20); Calcium 8.6 mg/dl (8.5-10.1); Creatinine Clr Calc Pharmacy 71.6 ml/min; Est GFR (African American) 93.6; Est GFR (Non-African American) 80.7; Potassium 3.5 mmol/L (3.5-5.1)
--- NOTE | 2019-02-07 11:05 | Infectious Disease Consult ---
Date of Consultation February 07, 2019 Assessment & Plan (1) Fever: suspect anaplasma. agree with doxy, follow repeat labs, temp improving after starting doxy. follow smear. History of Present Illness Attending Physician: Juno Tinoco DO pt admitted from PCP office with new onset afib with rvr. cardio following. States she was feeling well at home until the weekend, had increased fatigue on Sat with subjective f/c and diffuse body aches and weakness. these symptoms continued to worsen on Tuesday, no rigors. noted insect bite on left arm, min redness, no pain. no know tick bite but has been spending significant time lately in her garden planting. She went to PCP office on Tuesday thinking she had the flu but was found to be in afib. denies cp, sob, palpitations. was found to have fever of 39.3 in ER, 02/06 tmax 38.7, 02/07 37.9. currently feels warm but denies rigors or sweats. was placed on po doxy with concern for tick borne illness. lyme screen negative, flu swab negative, cxr and ua negative as well. Anaplasma and perph smear pending. wbc 4.8, platelets 215. no lfts doen. most recent labs 02/05, pending today. tolerating abx. states appetite was poor over weekend, eating but not hungry, no abd pain, no n/v/d. no gu symmptoms. body aches slightly better, still feeling overall weak. toleraitng abx. Allergies Allergy/AdvReac Type Severity Reaction Status Date / Time morphine Allergy Severe "STOPPED Verified 02/05/19 15:25 BREATHING" cephalexin Allergy Intermediate HIVES Verified 02/05/19 15:25 hydrochlorothiazide Allergy Intermediate ? heart Verified 02/05/19 15:25 palpatations amoxicillin [From Augmentin] Allergy Unknown ON [facility] Verified 02/05/19 15:25 LIST Cipro Allergy Unknown Other Verified 01/01/18 18:27 ciprofloxacin Allergy Unknown Other Verified 02/05/19 15:25 clavulanic acid Allergy Unknown ON [facility] Verified 02/05/19 15:25 [From Augmentin] LIST lidocaine AdvReac Intermediate RASH Verified 02/05/19 15:25 Home Medications Home Medications Medication Instructions Recorded Confirmed Type amlodipine 10 mg PO QDD 02/05/19 02/05/19 History aspirin [Aspir-81] 81 mg PO QDL 02/05/19 02/05/19 History dicyclomine 10 mg PO Q6 PRN 02/05/19 02/05/19 History docusate sodium [Colace] 100 mg PO QAM 02/05/19 02/05/19 History fish,bora,flax oils-om3,6,9no1 1 cap PO QDD 02/05/19 02/05/19 History [[place] 3-6-9] losartan 50 mg PO QAM 02/05/19 02/05/19 History methylcellulose (laxative) [Fiber 500 mg PO HS 02/05/19 02/05/19 History Therapy (m-cellulose)] multivitamin 1 tab PO QDL 02/05/19 02/05/19 History naproxen 500 mg PO BID PRN 02/05/19 02/05/19 History naproxen sodium [Aleve] 220 mg PO DIRECTED PRN 02/05/19 02/05/19 History polyethylene glycol 3350 [Miralax] 17 g PO DAILY 02/05/19 02/05/19 History vitamin B complex 1 tab PO QDL 02/05/19 02/05/19 History Patient History Medical History Essential hypertension (Chronic) Viral illness (Acute) Atrial fibrillation with RVR (Acute) IBS (irritable bowel syndrome) Incontinence Hip fracture No pertinent family history Surgical History No pertinent past surgical history Family History Other No pertinent family history Social History Preferred Language: Ukrainian Communication Ability: Effective Visual Impairment: No Limitations Hearing Ability: Normal Charter Boat Operator Required: No Beliefs That Will Affect Care: None Current Living Situation: Family Other Information That Helps Us Care for You: No Feels Safe at Home: Yes Safety Concerns: Feels Safe At This Time Smoking Status: Former smoker Do You Dip or Chew Tobacco: No Second Hand Exposure: No Hx Alcohol Use: No Hx Substance Use: No Review of Systems Review of Systems: All systems reviewed & are unremarkable except as noted in HPI & below Physical Exam Constitutional: WD/WN, vitals as above Eyes: PERRL, conjunctivae normal, anicteric sclerae ENMT: external ear and nose normal, oropharynx normal Neck: normal visual inspection Respiratory: normal respiratory effort, lungs clear to auscultation Cardiovascular: Rate/Rhythm: regular rate Heart Sounds: no murmur Gastrointestinal (Abdomen): normal bowel sounds, soft, nontender, no hepatosplenomegaly Musculoskeletal: no cyanosis or clubbing, extremities motor strength 5/5 Skin: no rashes, warm and dry left upper arm with small area of erythema,no open wounds, no warmth, non tender, no bulls eye appearance Psychiatric: A+Ox3, euthymic affect Results & Data Vital Signs (Past 12 Hours) Vital Signs Temp Pulse Resp BP Pulse Ox 02/07/19 07:41 37.9 C H 99 H 19 157/75 H 94 02/07/19 03:00 37.2 C 85 19 162/74 H 94 02/06/19 23:21 37.1 C 81 18 143/73 H 93 (1) Fever Fever type: unspecified Qualified Code(s): R50.9 - Fever, unspecified
--- NOTE | 2019-02-07 11:25 | Hospitalist Progress Note ---
Date of Service February 07, 2019 Assessment & Plan (1) Atrial fibrillation with RVR: - New onset found incidentally at PCP office possibly induced by tick- borne illness? - In NSR; Did have burst of possible A Fib/Flutter yesterday and this AM - Discussed with cardiology and will continue Toprol XL 100 mg daily and monitor for rate control; can add Diltiazem 120 mg daily if rate control is an issue - Eliquis 5 mg BID -- Rx ran through pharmacy and once deductible is met will be $37/month - p atient is not sure if that is something she would want to pay consistently - could consider Warfarin if not Present on Admission?: Yes (2) Tick-borne disease: - Continues to be febrile however occuring less frequently; - Has large circular rash on L AC region without central clearing; gardens and was outside a lot over weekend - In-house Lyme titers is negative; will do a peripheral blood smear for Anaplasmosis/Ehrlichiosis; will send out reference labs for Lyme, Erhlichiosis, Anaplasmosis - Started Doxycycline 100 mg BID which would cover both tick-borne and sinusitis - Procalcitonin is negative; no leukocytosis and platelets WNL however are continuously trending down - possible anaplasmosis - Consult ID - appreciate input - Doxycycline should cover but consideration for Rocephin? Does have an allergy to Keflex which was a significant rash - Tylenol PRN (3) Essential hypertension: - Amlodipine D/C'd in favor of BB therapy; Continue Losartan 50 mg daily; Toprol XL 100 mg daily (4) DVT prophylaxis: - Eliquis Disposition: Continues to be febrile and suspect tick-borne illness possibly anaplasmosis and will trend; possibly A Fib from tick-borne illness Subjective Reports feeling a bit better today and mostly complains of a nagging cough with clear sputum. She remains in NSR rates of 80-99 mostly. Has a large reddened rash superior to R AC region of arm. Continues to have intermittent fevers but becoming less frequent. She denies any other complaints Review of Systems Constitutional: + fever, + body aches and + fatigue; no chills Ear, Nose, Mouth, Throat: + nasal congestion, + nasal discharge (clear), + post nasal drip and + sinus pain/pressure; no sore throat and no dysphagia Respiratory: + cough and + sputum production (clear); no dyspnea Cardiovascular: no chest pain, no palpitations and no edema Gastrointestinal: no abdominal pain, no nausea, no vomiting, no cramping, no constipation and no diarrhea/loose stools Genitourinary: no dysuria Musculoskeletal: + body aches Integumentary: + rash (oblonged/circular rash superior to L AC region of arm no central clearing but slightly darkened area in center of erythema) Physical Exam Constitutional: WD/WN, vitals as above Eyes: + anicteric sclerae ENMT: Ears: no hearing impairment Nose: + sinus tenderness (R maxillary) Throat: uvula midline; no posterior oropharynx abnormality Neck: normal visual inspection and trachea midline Respiratory: normal respiratory effort, lungs clear to auscultation Cardiovascular: Rate/Rhythm: regular rate and regular rhythm Gastrointestinal (Abdomen): Inspection/Auscultation: normal bowel sounds Percussion/Palpation: abdomen soft; abdomen nontender Musculoskeletal: Head/Neck/Chest: normocephalic and head atraumatic Extremities: no cyanosis and no clubbing Skin: no rashes, warm and dry Neurologic: moves all extremities Psychiatric: A+Ox3, euthymic affect Lymphatic: no lymphadenopathy Results & Data Vital Signs (Past 12 Hours) Vital Signs Temp Pulse Resp BP Pulse Ox 02/07/19 07:41 37.9 C H 99 H 19 157/75 H 94 02/07/19 03:00 37.2 C 85 19 162/74 H 94 02/06/19 23:21 37.1 C 81 18 143/73 H 93
[2019-02-07] MEDS: VITAMIN B COMPLEX TAB PO SCH (12:00)
[2019-02-07] MEDS: ASPIRIN 81 MG ECTAB PO SCH (12:00)
[2019-02-07] MEDS: MULTIVITAMIN TAB PO SCH (12:00)
--- NOTE | 2019-02-07 13:06 | Cardiology Progress Note ---
Date of Service February 07, 2019 Assessment & Plan (1) Atrial fibrillation with RVR: The patient may now be in atrial flutter with a controlled ventricular response. If her ventricular response increases, could add long-acting diltiazem at 120 mg daily. Continue anticoagulation. (2) Essential hypertension: Adequate control on current medical regimen. (3) Hypercholesterolemia: Fasting lipid panel performed back in July noted an LDL cholesterol 104, and an HDL of 76. The patient refuses statin therapy. 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 (5) Fever: Consider a tick-borne illness. Subjective Patient dramatically improved every yesterday, however, still had a fever overnight. She points out a circular rash on her left upper extremity. Physical Exam Physical Exam: In general this is an obese white female lying supine in bed without complaints. HEENT exam is negative. Neck is supple with full carotid upstrokes. There are no carotid bruits. Jugular venous pressure is flat at 90 degrees. There is no thyromegaly. Cardiovascular exam reveals an irregular rhythm with distant heart sounds. No obvious murmurs. No S3. Lungs are clear without rales, rhonchi or wheezes. Abdomen is soft that bruits. Extremities reveal intact radial artery pulses bilaterally. There is trace pretibial edema a circular erythematous rash noted on the ventral aspect of the left humeral region. Results & Data Vital Signs (Past 12 Hours) Vital Signs Temp Pulse Resp BP Pulse Ox 02/07/19 11:49 37.2 C 81 18 142/83 H 94 02/07/19 07:41 37.9 C H 99 H 19 157/75 H 94 02/07/19 03:00 37.2 C 85 19 162/74 H 94 Diagnostic Findings equipment specialist notes sinus rhythm versus atrial flutter with a variable response. Artifact makes determination difficult. EKG suggests atrial flutter with 3-1 conduction, left anterior hemiblock, and right bundle-branch block. Echocardiogram noted normal left ventricular systolic function, mild LVH, mild mitral regurgitation, and a probable patent foramina ovale. (1) Fever Fever type: unspecified Qualified Code(s): R50.9 - Fever, unspecified
[2019-02-07] MEDS: SODIUM CHLORIDE 0.9% 1000ML 1,000 ML IV SCH (13:45)
[2019-02-07] MEDS: BENZONATATE 100 MG CAPSULE PO SCH ×2 (14:02→20:02)
[2019-02-07] MEDS: OMEGA-3 (PURIFIED FISH OIL) 1 GM CAP PO SCH (17:18)
[2019-02-07] MEDS: METHYLCELLULOSE POWDER 454 GM JAR PO SCH (20:02)
[2019-02-07] MEDS: guaiFENesin SUGAR FREE 100 MG/5 ML UDC PO PRN (22:06)
[2019-02-07] MEDS: ACETAMINOPHEN 325 MG TAB PO PRN (23:17)
[2019-02-08] MEDS: SODIUM CHLORIDE 0.9% 1000ML 1,000 ML IV SCH ×2 (04:39→15:58)
[2019-02-08] MEDS: APIXABAN 5 MG TABLET PO SCH ×2 (08:06→20:46)
[2019-02-08] MEDS: DOXYCYCLINE HYCLATE 100 MG CAP PO SCH ×2 (08:06→22:42)
[2019-02-08] MEDS: LOSARTAN POTASSIUM 50 MG TAB PO SCH (08:07)
[2019-02-08] MEDS: DOCUSATE SODIUM 100 MG CAP PO SCH (08:07)
[2019-02-08] MEDS: METOPROLOL SUCC 50MG EXT REL TAB PO SCH (08:08)
[2019-02-08] MEDS: POLYETHYLENE (MIRALAX) 17 GM PACK PO SCH (08:08)
[2019-02-08] MEDS: BENZONATATE 100 MG CAPSULE PO SCH ×3 (08:09→20:45)
[2019-02-08] MEDS: guaiFENesin SUGAR FREE 100 MG/5 ML UDC PO PRN ×2 (09:11→21:44)
--- NOTE | 2019-02-08 09:57 | Cardiology Progress Note ---
Date of Service February 08, 2019 Assessment & Plan (1) Atrial fibrillation with RVR: It appears that the patient is in atrial flutter with a variable, but controlled ventricular response. Would continue metoprolol succinate and Eliquis. We could add low-dose long-acting diltiazem at 120 mg daily if necessary. Would check an EKG today. (2) Essential hypertension: Borderline control on current medical regimen. (3) Hypercholesterolemia: Fasting lipid panel performed back in July noted an LDL cholesterol 104, and an HDL of 76. The patient refuses statin therapy. 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 (5) Fever: Consider a tick-borne illness. Subjective The patient is resting comfortably at the bedside without complaints of chest pain, dyspnea, or palpitations. We have discussed this mornings low-grade fever. Physical Exam Physical Exam: In general this is an obese white female lying supine in bed without complaints. HEENT exam is negative. Neck is supple with full carotid upstrokes. There are no carotid bruits. Jugular venous pressure is flat at 90 degrees. There is no thyromegaly. Cardiovascular exam reveals an irregular rhythm with distant heart sounds. No obvious murmurs. No S3. Lungs are clear without rales, rhonchi or wheezes. Abdomen is soft that bruits. Extremities reveal intact radial artery pulses bilaterally. There is trace pretibial edema. Results & Data Vital Signs (Past 12 Hours) Vital Signs Temp Pulse Pulse Resp BP Pulse Ox 02/08/19 07:00 37.6 C H 84 22 167/73 H 92 02/08/19 03:23 37.1 C 80 17 140/62 91 02/08/19 00:00 37.8 C H 81 18 152/70 H 92 02/07/19 22:45 91 H Diagnostic Findings bus monitor notes atrial flutter with a variable ventricular response between 60 and 90 beats per minute. (1) Fever Fever type: unspecified Qualified Code(s): R50.9 - Fever, unspecified
[2019-02-08] MEDS: ASPIRIN 81 MG ECTAB PO SCH (11:58)
[2019-02-08] MEDS: MULTIVITAMIN TAB PO SCH (11:58)
[2019-02-08] MEDS: VITAMIN B COMPLEX TAB PO SCH (11:59)
--- NOTE | 2019-02-08 13:55 | Infectious Disease Progress Nt ---
Date of Service February 08, 2019 Assessment & Plan (1) Fever: suspect anaplasma. agree with doxy, follow repeat labs, temp improving after starting doxy. Subjective pt resting comfortably in bed on exam, ate lunch. remains on doxy. currently afe brile but had fevers overnight, overall improved. tmax 38. wbc increased to 6.3, platelets dropped to 115. no LFTS. no smear Physical Exam Constitutional: WD/WN, vitals as above Eyes: PERRL, conjunctivae normal, anicteric sclerae ENMT: external ear and nose normal, oropharynx normal Neck: normal visual inspection Respiratory: normal respiratory effort, lungs clear to auscultation Cardiovascular: Rate/Rhythm: regular rate Heart Sounds: no murmur Gastrointestinal (Abdomen): normal bowel sounds, soft, nontender, no hepatosplenomegaly Musculoskeletal: no cyanosis or clubbing, extremities motor strength 5/5 Skin: no rashes, warm and dry Psychiatric: A+Ox3, euthymic affect Results & Data Vital Signs (Past 12 Hours) Vital Signs Temp Pulse Resp BP Pulse Ox 02/08/19 12:05 37.4 C 79 16 145/79 H 92 02/08/19 07:00 37.6 C H 84 22 167/73 H 92 02/08/19 03:23 37.1 C 80 17 140/62 91 (1) Fever Fever type: unspecified Qualified Code(s): R50.9 - Fever, unspecified
[2019-02-08] MEDS: OMEGA-3 (PURIFIED FISH OIL) 1 GM CAP PO SCH (15:58)
--- NOTE | 2019-02-08 18:16 | Hospitalist Progress Note ---
Date of Service February 08, 2019 Assessment & Plan (1) Atrial fibrillation with RVR: - New onset found incidentally at PCP office possibly induced by tick- borne illness? 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 however occurring less frequently; low grade this AM and rather afebrile through the afternoon - Has large circular rash on L AC region no with slight central clearing; she does garden and was outside a lot over weekend but denies known tick bite - In-house Lyme titers are negative; peripheral blood smear for Anaplasmosis/Ehrlichiosis neg; will send out reference labs for Lyme, Erhlichiosis, Anaplasmosis - Doxycycline 100 mg BID which would cover both tick-borne and sinusitis - Procalcitonin is negative; no leukocytosis and platelets WNL however are continuously trending down and will monitor - Consult ID - appreciate input - Tylenol PRN Present on Admission?: Yes (3) Essential hypertension: - Amlodipine D/C'd in favor of BB therapy; Continue Losartan 50 mg daily; Toprol XL 100 mg daily Present on Admission?: Yes (4) DVT prophylaxis: - Eliquis Disposition: If remains afebrile can D/C home tomorrow Subjective Reports feeling a bit better but fatigued. Continues with a productive cough now of yellow sputum. Low grade fever this AM but staying afebrile through the day. A Flutter on monitor. Tolerating diet. No new complaints. Review of Systems Constitutional: + fever and + fatigue; no chills Ear, Nose, Mouth, Throat: + nasal congestion, + nasal discharge (clear), + post nasal drip and + sinus pain/pressure; no sore throat and no dysphagia Respiratory: + cough and + sputum production (now yellow); no dyspnea Cardiovascular: no chest pain and no palpitations Gastrointestinal: no abdominal pain, no nausea, no vomiting, no constipation and no diarrhea/loose stools Genitourinary: no dysuria Integumentary: + rash (oblonged/circular rash superior to L AC region of arm) Physical Exam Constitutional: WD/WN, vitals as above Eyes: + anicteric sclerae ENMT: Ears: no hearing impairment Neck: normal visual inspection and trachea midline Respiratory: normal respiratory effort, lungs clear to auscultation Cardiovascular: Rate/Rhythm: regular rate and regular rhythm Gastrointestinal (Abdomen): Inspection/Auscultation: normal bowel sounds Percussion/Palpation: abdomen soft; abdomen nontender Musculoskeletal: Head/Neck/Chest: normocephalic and head atraumatic Extremities: no cyanosis and no clubbing Skin: Circular erythema superior to LUE AC region now with slight central clearing around what appears to be a bite destinee Neurologic: moves all extremities Psychiatric: A+Ox3, euthymic affect Lymphatic: no lymphadenopathy Results & Data Vital Signs (Past 12 Hours) Vital Signs Temp Pulse Resp BP Pulse Ox 02/08/19 15:52 36.8 C 76 18 142/69 H 98 02/08/19 12:05 37.4 C 79 16 145/79 H 92 02/08/19 07:00 37.6 C H 84 22 167/73 H 92
--- NOTE | 2019-02-08 18:47 | XRay Report ---
XR chest 1V portable HISTORY: F/U Congestion/Fever COMPARISON: Chest 02/05/2019. FINDINGS: No pneumothorax. No pleural effusions. The heart remains mildly enlarged. No new focal lung consolidations to suggest pneumonia. No evidence for pulmonary edema. IMPRESSION: Stable mild cardiomegaly. Electronically signed by: Willie Mccoy M.D. 02/08/2019 6:46 PM
[2019-02-08] MEDS: METHYLCELLULOSE POWDER 454 GM JAR PO SCH (20:45)
[2019-02-09] MEDS: SODIUM CHLORIDE 0.9% 1000ML 1,000 ML IV SCH (05:18)
[2019-02-09 05:44] LABS: Hematocrit (blood only) 30.5 % (37-47); Hemoglobin 10.6 g/dL (12.0-16.0); Mean Corpuscular Hgb Conc 34.8 g/dL (32-36); Mean Corpuscular Volume 89.2 fL (80-100); Mean Platelet Volume 9.7 fL (7.4-10.4); Platelet Count 152 K/uL (130-400); RDW Coefficient of Variation 12.8 % (11.5-14.5); RDW Standard Deviation 41.6 fL (36.4-46.3); Red Blood Count 3.42 M/uL (4.2-5.4); White Blood Count 5.88 K/uL (4.8-10.8)
[2019-02-09 06:22] LABS: Albumin Level 2.8 gm/dl (3.4-5.0); Calcium 8.3 mg/dl (8.5-10.1); Creatinine Clr Calc Pharmacy 85.7 ml/min; Est GFR (African American) 98.7; Est GFR (Non-African American) 85.1; Potassium 3.2 mmol/L (3.5-5.1)
[2019-02-09 06:25] LABS: Albumin Globulin Ratio 0.8 (0.9-2); Bilirubin,Total 0.5 mg/dl (0.2-1); Globulin 3.7 gm/dl (2.5-4.0); Total Protein 6.5 gm/dl (6.4-8.2)
[2019-02-09] MEDS: LOSARTAN POTASSIUM 50 MG TAB PO SCH (08:07)
[2019-02-09] MEDS: DOCUSATE SODIUM 100 MG CAP PO SCH (08:07)
[2019-02-09] MEDS: BENZONATATE 100 MG CAPSULE PO SCH (08:07)
[2019-02-09] MEDS: DOXYCYCLINE HYCLATE 100 MG CAP PO SCH (08:07)
[2019-02-09] MEDS: METOPROLOL SUCC 50MG EXT REL TAB PO SCH (08:08)
[2019-02-09] MEDS: APIXABAN 5 MG TABLET PO SCH (08:08)
[2019-02-09] MEDS: POLYETHYLENE (MIRALAX) 17 GM PACK PO SCH (08:08)
--- NOTE | 2019-02-09 10:15 | Infectious Disease Progress Nt ---
Date of Service February 09, 2019 Assessment & Plan (1) Fever: suspect anaplasma. agree with doxy, would give 14 days total. ok for d/c when otherwise stable. discussed with primary Subjective pt seen in followup, asking to be d/c home. has been afebrile >24 hours. tolerating doxy. no abd pain, no n/v/d, eating better. slight cough and rachel, denies cp. wbc 5.8, platelets 152, LFTs normal. perph smear negative for anaplasma, awaiting serologies. CXR done yesterday, negative for infiltrate. all remaining ros reviewed and are negative. Review of Systems Review of Systems: All systems reviewed & are unremarkable except as noted in HPI & below Physical Exam Constitutional: WD/WN, vitals as above Eyes: PERRL, conjunctivae normal, anicteric sclerae ENMT: external ear and nose normal, oropharynx normal Neck: normal visual inspection Respiratory: normal respiratory effort, lungs clear to auscultation Cardiovascular: Rate/Rhythm: regular rate Heart Sounds: no murmur Gastrointestinal (Abdomen): normal bowel sounds, soft, nontender, no hepatosplenomegaly Musculoskeletal: no cyanosis or clubbing, extremities motor strength 5/5 Skin: no rashes, warm and dry Psychiatric: A+Ox3, euthymic affect Results & Data Vital Signs (Past 12 Hours) Vital Signs Temp Pulse Pulse Resp BP BP Pulse Ox 02/09/19 07:20 36.8 C 85 22 160/78 H 93 02/09/19 03:35 37 C 98 H 22 176/96 H 93 02/08/19 23:15 90 02/08/19 23:14 37.2 C 85 22 176/84 H 92 (1) Fever Fever type: unspecified Qualified Code(s): R50.9 - Fever, unspecified
[2019-02-09] MEDS: ASPIRIN 81 MG ECTAB PO SCH (11:28)
[2019-02-09] MEDS: VITAMIN B COMPLEX TAB PO SCH (11:28)
[2019-02-09] MEDS: MULTIVITAMIN TAB PO SCH (11:28)
[2019-02-09 12:04] VITALS: BP 154/83; TEMP 97.9; O2SAT 91
--- NOTE | 2019-02-09 12:35 | Cardiology Progress Note ---
Date of Service February 09, 2019 Assessment & Plan (1) Atrial fibrillation with RVR: It appears that the patient is in atrial flutter with a controlled ventricular response. However, EKG suggest the possibility of sinus rhythm, however, baseline artifact makes it difficult to discern her rhythm. In any event, would continue metoprolol succinate and Eliquis. We could add low-dose long-acting diltiazem at 120 mg daily if necessary. (2) Essential hypertension: Borderline control on current medical regimen. (3) Hypercholesterolemia: Fasting lipid panel performed back in July noted an LDL cholesterol 104, and an HDL of 76. The patient refuses statin therapy. 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 (5) Fever: Appreciate Dr. Bright input. Subjective The patient is resting comfortably at the bedside without complaints of chest pain, dyspnea, palpitations. She is anxious for hospital discharge. Physical Exam Physical Exam: In general this is an obese white female lying supine in bed without complaints. HEENT exam is negative. Neck is supple with full carotid upstrokes. There are no carotid bruits. Jugular venous pressure is flat at 90 degrees. There is no thyromegaly. Cardiovascular exam reveals a regular rhythm with distant heart sounds. No obvious murmurs. No S3. Lungs are clear without rales, rhonchi or wheezes. Abdomen is soft that bruits. Extremities reveal intact radial artery pulses bilaterally. There is trace pretibial edema. Results & Data Vital Signs (Past 12 Hours) Vital Signs Temp Pulse Resp BP Pulse Ox 02/09/19 12:02 36.6 C 80 20 154/83 H 91 02/09/19 07:20 36.8 C 85 22 160/78 H 93 02/09/19 03:35 37 C 98 H 22 176/96 H 93 Diagnostic Findings EKG notes sinus rhythm versus atrial flutter with 3-1 conduction. As a complete right bundle-branch block and left anterior hemiblock. awake overnight monitor confirms the same. (1) Fever Fever type: unspecified Qualified Code(s): R50.9 - Fever, unspecified
[2019-02-09 13:50] VITALS: PULSE 81
--- NOTE | 2019-02-09 22:31 | Discharge Summary ---
Date of Service February 09, 2019 Admission HPI Per Admitting Provider 83-year-old female with recent onset of viral symptoms and low-grade fever. She was at the physician's office today when she was found to have new onset atrial fibrillation with rapid ventricular rate. She denies any chest discomfort or shortness of breath. Chest x-ray is negative. Urine analysis is negative. No acute EKG changes. Initial troponin negative. She was administered Eliquis and IV metoprolol in the ED. She remains mildly tachycardic. Toprol-XL 50 mg will be started now and continue daily. Amlodipine will be discontinued. Thyroid profile is pending. She will be placed on observation with telemetry. Cardiac echo has been ordered along with cardiology consultation. Admission Exam Per Admitting Provider Constitutional: WD/WN, vitals as above Eyes: PERRL, conjunctivae normal, anicteric sclerae ENMT: external ear and nose normal, oropharynx normal Neck: trachea midline, no thyromegaly Respiratory: normal respiratory effort, lungs clear to auscultation + cough Cardiovascular: Tachycardic irregular rhythm. Normal S1 and S2. No audible murmurs. Negative S3 Gastrointestinal (Abdomen): normal bowel sounds, soft, nontender, no hepatosplenomegaly Musculoskeletal: no cyanosis or clubbing, extremities motor strength 5/5 Skin: no rashes, warm and dry Neurologic: CN's II-XI intact bilaterally and moves all extremities; no focal motor deficits Principal Diagnosis New onset atrial fibrillation Discharge Exam Constitutional WD/WN, vitals as above Eyes PERRL, conjunctivae normal, anicteric sclerae ENMT external ear and nose normal, oropharynx normal Neck trachea midline, no thyromegaly Respiratory normal respiratory effort, lungs clear to auscultation Cardiovascular Rate/Rhythm: + abnormal rhythm (irregular irregular) Heart Sounds: normal S1 and normal S2; no murmur Vessels: no JVD Extremities: normal capillary refill; no edema Gastrointestinal (Abdomen) normal bowel sounds, soft, nontender, no hepatosplenomegaly Musculoskeletal no cyanosis or clubbing, extremities motor strength 5/5 Skin + rash (left medial upper arm, mild bullseye rash) Neurologic patellar DTR's 2+ bilat, sensation intact and PERRL, EOMI, accommodation nl, no face palsy, no dysarthria Psychiatric A+Ox3, euthymic affect Lymphatic no cervical or axillary lymphadenopathy Discharge Data Allergies Allergy/AdvReac Type Severity Reaction Status Date / Time morphine Allergy Severe "STOPPED Verified 02/05/19 15:25 BREATHING" cephalexin Allergy Intermediate HIVES Verified 02/05/19 15:25 hydrochlorothiazide Allergy Intermediate ? heart Verified 02/05/19 15:25 palpatations amoxicillin [From Augmentin] Allergy Unknown ON [facility] Verified 02/05/19 15:25 LIST Cipro Allergy Unknown Other Verified 01/01/18 18:27 ciprofloxacin Allergy Unknown Other Verified 02/05/19 15:25 clavulanic acid Allergy Unknown ON [facility] Verified 02/05/19 15:25 [From Augmentin] LIST lidocaine AdvReac Intermediate RASH Verified 02/05/19 15:25 Consultations 02/05/19 17:56 ED Decision to Admit Stat 02/05/19 20:21 Consult Cardiology Routine 02/07/19 10:00 Consult Infectious Diseases Routine Hospital Course (1) Atrial fibrillation with RVR: - New onset found incidentally at PCP office possibly induced by tick- borne illness? - Appears to be more in an A Flutter as there does appear to be small additional waves vs a NSR - Continue Toprol XL 100 mg daily rates well controlled on monitor d/w Dr. Lynn on day of discharge, he agrees that she is good to go - Eliquis 5 mg BID for anticoagulation and stroke prevention (2) Tick-borne disease: - Continues to be febrile however occurring less frequently; low grade this AM and rather afebrile through the afternoon - Has large circular rash on L AC region with slight central clearing; she does garden and was outside a lot over weekend but denies known tick bite - In-house Lyme titers are negative; peripheral blood smear for Anaplasmosis/Ehrlichiosis neg; will send out reference labs for Lyme, Erhlichiosis, Anaplasmosis - Doxycycline 100 mg BID which would cover both tick-borne and sinusitis complete 14 days total can follow up with Infectious Disease, Dr. Bright (3) Essential hypertension: - Amlodipine D/C'd in favor of BB therapy; Continue Losartan 50 mg daily; Toprol XL 100 mg daily pressures stable (4) DVT prophylaxis: - Eliquis d/c to home Total Time Total Time Spent Total Time Spent (In Minutes): 35 minutes Total Time Includes: Examination of the Patient, Discharge Planning, Medication Reconciliation and Communication With Other Providers (Dr. Lynn, Dr. 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 *If you need to change this appointment, call their office at [phone].) Van Lynn MD [Primary Care Provider] - 02/27/19 1:00 pm (Please, follow up at the [facility] in [place] with Dr. Lynn's conventions assistant, Sacha Haque Pa-C, on TuesdayFebruary 27 at 1:00 pm. Unfortunately, there were no openings in the near future at the [place] office. *The office is located in [address] of [facility]. This is the big building next to [facility]. If you need to change this appointment, call their office at [phone]. ) Diet: Regular Addtl Provider Instructions: Medications - DOXYCYCLINE: 100mg twice a day until complete to treat tick born illness - ELIQUIS: 5mg twice a day for anticoagulation, stroke prevention - METOPROLOL: 100mg daily, this is for heart rate control with atrial fibrillation - TESSALON: take as needed for cough Atrial fibrillation: new diagnosis heart rate is controlled on the Metoprolol please note that this replaced Norvasc (amlodipine) so you should not take Norvasc any more take the Eliquis for stroke prevention follow up with Dr. 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 Bright in the office in 1-2 weeks her office number is [phone] Cough: no evidence of pneumonia on repeat chest x-ray Doxycycline will cover any bacterial infection Prescriptions: New doxycycline hyclate 100 mg Capsule 100 mg PO BID 11 Days Qty: 22 RF: 0 metoprolol succinate 50 mg Tablet Extended Release 24 Hr 100 mg PO QAM 30 Days Qty: 60 RF: 3 Eliquis 5 mg Tablet 5 mg PO BID 30 Days Qty: 60 RF: 3 benzonatate [Tessalon Perles] 100 mg Capsule 100 mg PO TID 10 Days Qty: 30 RF: 0 Continued multivitamin Tablet 1 tab PO QDL RF: 0 losartan 50 mg Tablet 50 mg PO QAM RF: 0 polyethylene glycol 3350 [Miralax] 17 gram Powder In Packet 17 g PO DAILY RF: 0 aspirin [Aspir-81] 81 mg Tablet,Delayed Release (Dr/Ec) 81 mg PO QDL RF: 0 Fiber Therapy (m-cellulose) 500 mg Tablet 500 mg PO HS RF: 0 naproxen sodium [Aleve] 220 mg Tablet 220 mg PO DIRECTED PRN (Reason: Pain) RF: 0 docusate sodium [Colace] 100 mg Capsule 100 mg PO QAM RF: 0 vitamin B complex Tablet 1 tab PO QDL RF: 0 dicyclomine 10 mg Capsule 10 mg PO Q6 PRN (Reason: NEEDED) RF: 0 naproxen 500 mg Tablet 500 mg PO BID PRN (Reason: Pain) RF: 0 [place] 3-6-9 1,200 mg Capsule 1 cap PO QDD RF: 0 Discontinued amlodipine 10 mg Tablet 10 mg PO QDD RF: 0 Stand-Alone Forms: [facility] Discharge Orders: Discharge Order (Routine); Ordered 02/09/19 Ordered By: Juno Tinoco Admission Data Admit Date/Time: 02/07/19 11:30 Attending Provider: Juno Tinoco Admit Provider: Segun Craig Primary Care Provider: Van Lynn Other Providers: Sgeun Craig ; Sacha Haque ; Dante Johnson ; Van Lynn ; Eros Forte ; Alejandro Simon Jr ; Alexander Holder ; Liana Peralta ; Tamera Livingston ; Jose Moss ; Jose Gallegos ; Lupillo Cristina ; Segun Cunningham ; Melanie Butt ; Jud Sheldon ; Nicko Antonio Service: Telemetry Other Interventions: Discharge Summary Assessment (RN) Last Done: 02/09/19 13:47 DC Date/Time DO NOT enter until pt leaves facility: 02/09/19 14:06
[2019-02-12 17:08] LABS: Anaplasma phagocytophila IgM <1:20 (<1:20); Ehrlichia chaff IgG Ab <1:64 (<1:64); Ehrlichia chaff IgM Ab <1:20 (<1:20)
[2019-02-13 01:33] LABS: 18KDIGG Band NONREACTIVE (NONREACTIVE); 23KDIGG Band NONREACTIVE (NONREACTIVE); 23KDIGM Band NONREACTIVE (NONREACTIVE); 28KDIGG Band NONREACTIVE (NONREACTIVE); 30KDIGG Band NONREACTIVE (NONREACTIVE); 39KDIGG Band NONREACTIVE (NONREACTIVE); 39KDIGM Band NONREACTIVE (NONREACTIVE); 41KDIGG Band NONREACTIVE (NONREACTIVE); 41KDIGM Band NONREACTIVE (NONREACTIVE); 45KDIGG Band NONREACTIVE (NONREACTIVE); 58KDIGG Band NONREACTIVE (NONREACTIVE); 66KDIGG Band NONREACTIVE (NONREACTIVE); 93KDIGG Band NONREACTIVE (NONREACTIVE); Lyme Antibodies, WB IgG NEGATIVE (NEGATIVE); Lyme Antibodies, WB IgM NEGATIVE (NEGATIVE)
== END 2019-02-09 14:06 | disposition home or self-care (01) | DRG 869 ==
LOC: 2S 14:24 → ED 14:24 → SUATTDRO 18:34 → 2S 19:16
DX: E78.00 Pure hypercholesterolemia, unspecified; I45.10 Unspecified right bundle-branch block; I44.4 Left anterior fascicular block; B34.9 Viral infection, unspecified; I48.91 Unspecified atrial fibrillation; Z82.49 Family history of ischemic heart disease and other diseases of the circulatory system; A77.49 Other ehrlichiosis; Z88.5 Allergy status to narcotic agent; R55 Syncope and collapse; Z79.82 Long term (current) use of aspirin; I10 Essential (primary) hypertension; Z85.41 Personal history of malignant neoplasm of cervix uteri; Z85.3 Personal history of malignant neoplasm of breast